=== PATIENT | female | born 1950 | race Caucasian/White ===

== ENCOUNTER 2021-03-31 13:42 | Outpatient (CLI) | payer MEDICARE, SELFPAY ==
--- NOTE | 2021-03-31 13:50 | XR_ITS ---
WS: [id number] Abdomen series: PA CHEST AND 2 VIEWS OF THE ABDOMEN HISTORY: FLANK PAIN, RIGHT COMPARISON: None available. Lungs are clear and well aerated. Heart size is normal. No free air beneath the diaphragm. Bowel gas pattern is normal. No masses or calcifications. Osseous structures are also within normal l imits. Prior cholecystectomy. Mild narrowing of the SI joints and hip joints. Thoracolumbar scoliosis. XR/XR acute abdomen series [id number] IMPRESSION: No GI tract obstruction or free air.
== END 2021-03-31 13:43 | disposition home or self-care (01) ==
PROVIDERS: PCP Family Medicine; Visit Provider Family Medicine
DX: R10.9 Unspecified abdominal pain (principal)
CPT/HCPCS: 74022

== ENCOUNTER → 2021-04-26 16:52 | Outpatient (BNVA) | payer MEDICARE, SELFPAY | PROVIDERS: PCP Family Medicine; Visit Provider Registered Nurse Neonatal Intensive Care | DX: N39.0 Urinary tract infection, site not specified (principal) | CPT/HCPCS: 81000 ==

== ENCOUNTER 2021-10-02 08:39 | Emergency (ER) | payer MEDICARE, SELFPAY ==
[2021-10-02 08:41] VITALS: BP 135/65; PULSE 80; RESP 18; TEMP 37.1; O2SAT 98; BMI 31.6
--- NOTE | 2021-10-02 08:56 | XRR_ITS ---
PROCEDURE INFORMATION: Exam: XR Right Foot Exam date and time: 10/02/2021 8:56 AM Age: 71 years old Clinical indication: Injury or trauma; Fall; Blunt trauma; Foot; Right TECHNIQUE: Imaging protocol: XR Right foot. Views: 3 or more views. COMPARISON: No relevant prior studies available. FINDINGS: Bones/joints: No acute fracture or malalignment. Moderate 1st MTP joint degenerative changes. Calcaneal enthesopathy. Soft tissues: Normal. XR/XR foot RT min 3V* [id number] IMPRESSION: No acute fracture or malalignment.
--- NOTE | 2021-10-02 08:56 | W.ED.EXTPRO ---
HPI - Extremity Problem General: Chief complaint: Extremity Injury, Lower Stated complaint: RIGHT ANKLE PAIN S/P FALL Time Seen by Provider: 10/02/21 08:46 History of Present Illness: Patient fell on bottom step at home today injuring her right foot. Patient said when she fell she hit her head up against a wall but did not have any loss of consciousness and she has no neck pain she is not on any blood thinners. Patient said she has no other complaints of any injury anywhere. Says her foot hurts and has some swelling. Hard to put weight on it. Associated symptoms: Deny chest pain, fever(s) or rash Review of Systems Const: Denies: fever(s), chills or body aches Eyes: Denies: eye discomfort ENMT: Denies: throat pain Card: Denies: chest pain Resp: Denies: dyspnea GI: Denies: abdominal pain, nausea or vomiting Musc: Reports: extremity pain (Right foot from a fall this morning.) and extremity swelling Skin/Breast: Denies: rash Neuro: Denies: headache(s) Psych: Denies: depression or suicidal ideation [facility] ED PFSH: Social History (Updated 04/26/21 @ 15:53 by Maude Harden LPN) Smoking and tobacco status: never smoked Physical Exam Const: COMMON NORMALS: no acute distress, patient oriented x3 and alert HENMT: COMMON NORMALS: normocephalic HEAD & SCALP: normocephalic Eye: COMMON NORMALS: EOMs intact bilaterally Neck/C-Spine: COMMON NORMALS: no JVD Resp: COMMON NORMALS: normal respiratory effort and No use of accessory muscles Cardio: COMMON NORMALS: no JVD GI: INSPECTION: Yes normal to inspection Extremity: RIGHT LOWER EXTREMITY: Yes foot & digits (Tenderness and swelling to the right lateral aspect midfoot.) Right foot and digits: Yes palpation (Tender.) and Yes neurovascular exam (Intact.) Neuro: COMMON NORMALS: patient oriented x3 SENSORIUM/ORIENTATION: Yes alert Psych: COMMON NORMALS: mental status grossly normal Skin: COMMON NORMALS: no rashes or lesions noted GENERAL SKIN EXAM: no rashes or lesions noted Course Vital Signs: Vital signs: Vital Signs Temperature 98.7 F 10/02/21 08:41 Pulse Rate 81 10/02/21 09:51 Respiratory Rate 17 10/02/21 09:51 Blood Pressure 146/98 10/02/21 09:51 Pulse Oximetry 100 10/02/21 09:51 MDM - Extremity (Nontraumatic) Medical Decision Making Contusion. Lab Data Radiology Impressions Foot X-Ray 10/02/21 08:56 IMPRESSION: No acute fracture or malalignment. Discharge Plan Discharge Patient Disposition: Home Clinical Impression: Foot sprain Qualifiers: Encounter type: initial encounter Laterality: right Qualified Code(s): S93.601A - Unspecified sprain of right foot, initial encounter Condition: Stable Prescriptions: No Action metformin 500 mg tablet 500 mg PO DAILY 0RF lisinopril 2.5 mg tablet 2.5 mg PO DAILY 0RF amlodipine 5 mg tablet 5 mg PO DAILY 0RF doxycycline hyclate 100 mg tablet 100 mg PO BID 7 Days Qty: 14 0RF Discharge Orders: Discharge ED (Routine); Ordered 10/02/21 Ordered By: nEoc Sifuentes Referrals: Miguel Anderson, [Primary Care Provider] - Discharge Diet: Usual diet Discharge Activity: Increase activity as tolerated Patient Instructions: Foot Sprain (ED) Activity Restrictions/Additional Instructions: Apply ice to area as needed. Ambulate as much as possible. If no significant provement noted in the healing process please follow-up your primary care provider or return here. Coding Level of Care Code ED Planting Material Unloader for Trino Nathan Exam Comprehensive
[2021-10-02 09:10] VITALS: BP 135/65; PULSE 80; RESP 18; O2SAT 98
[2021-10-02 09:51] VITALS: BP 146/98; PULSE 81; RESP 17; O2SAT 100
== END 2021-10-02 09:19 | disposition home or self-care (01) ==
PROVIDERS: Emergency Provider Nurse Practitioner Family; PCP Family Medicine
DX: S93.601A Unspecified sprain of right foot, initial encounter (principal); W19.XXXA Unspecified fall, initial encounter
CPT/HCPCS: 73630; 99283

== ENCOUNTER → 2021-11-07 13:02 | Outpatient (BNVA) | payer MEDICARE, SELFPAY | PROVIDERS: PCP Family Medicine | DX: N39.0 Urinary tract infection, site not specified (principal) | CPT/HCPCS: 81000 ==

== ENCOUNTER 2022-08-27 19:19 | Emergency (ER) | payer MEDICARE, SELFPAY ==
[2022-08-27] VITALS (7 sets, daily range): BP systolic 143–175; BP diastolic 77–93; PULSE 71–88; RESP 13–23; TEMP 36.6; O2SAT 94–97; BMI 30.6
--- NOTE | 2022-08-27 19:42 | ECG_ITS ---
[facility] Test Date: 2022-08-27 Pat Name: Shala Gutiérrez Department: Room: Gender: Female Pharmacy Technician Trainee: : 1950 Requested By: Marycarmen Rasheed Order Number: [id number] Stephanie MD: Maricruz Padron M.D. Measurements Intervals [place] Rate: 92 P: 40 [place]: 158 QRS: -17 QRSD: 90 T: 30 QT: 337 QTc: 419 Interpretive Statements SINUS RHYTHM LOW QRS VOLTAGE IN PRECORDIAL LEADS [QRS DEFLECTION < 1.0 mV IN CHEST LEADS] Compared to ECG 08/25/2016 10:00:12 Low QRS voltage now present Electronically Signed On 08-28-2022 8:49:34 REMEDIAL READING TEACHER by Maricruz Padron M.D. [email or web address].[employer]/store/[id number]
--- NOTE | 2022-08-27 20:17 | XRR_ITS ---
PROCEDURE INFORMATION: Exam: XR Chest Exam date and time: 08/27/2022 8:22 PM Age: 72 years old Clinical indication: Sternal or substernal pain; Additional info: Cp TECHNIQUE: Imaging protocol: Radiologic exam of the chest. Views: 1 view. COMPARISON: CR XR chest 2V* [id number] 07/18/2017 12:53 AM FINDINGS: Lungs: Unremarkable. No consolidation. Pleural spaces: Unremarkable. No pleural effusion. No pneumothorax. Heart/Mediastinum: Unremarkable. No cardiomegaly. Bones/joints: Moderate dextroscoliosis of the thoracic spine. Rotator cuff repair anchor noted in the left humeral head. Visualized osseous structures are intact. XR/XR chest 1V portable [id number] IMPRESSION: No acute findings.
[2022-08-27 20:24] LABS: Basophils % 0.7 %; Eosinophils # 0.3 10^3/uL (0.0-0.8); Eosinophils % 5.1 %; Hematocrit 41.6 % (37.0-47.0); Hemoglobin 13.9 g/dL (11.5-15.3); Lymphocytes # 1.8 10^3/uL (0.8-4.8); Mean Corpuscular HGB Conc 33.4 g/dL (30.0-36.0); Mean Corpuscular Hemoglobin 28.3 pg (28.0-34.0); Mean Corpuscular Volume 84.7 fl (81-99); Mean Platelet Volume 10.2 fL (7.4-10.4); Monocytes # 0.5 10^3/uL (0.2-0.9); Monocytes % 8.4 %; Neutrophils # 3.29 10^3/uL (1.8-7.7); Neutrophils % 55.5 %; Nucleated Red Blood Cells % 0 %; Platelet Count 223 10^3/cmm (130-400); Red Blood Count 4.91 10^6/uL (4.1-5.3); White Blood Count 5.9 10^3/uL (4.0-10.0)
--- NOTE | 2022-08-27 20:28 | ED_ITS ---
HPI - Arrhythmia/Palpitations General: Chief Complaint: Arrhythmia/Palpitations Stated Complaint: pain by should blades, sob, light headed Time Seen by Provider: 08/27/22 19:53 Source: patient History of Present Illness: 72-year-old female with a history of atrial fibrillation. She presents with an episode of feeling flushed, with pain between her shoulder blades and some mild shortness of breath while eating supper this evening. The sensation is now passed. She notes that for a minute, it felt like she was going to pass out. She has no prior coronary history. She does complain of similar upper back pains that wax and wane over the last 48 to 72 hours. MD complaint: rapid heart beat Onset (ago): minute(s) Duration: constant and now resolved Context: other Arrhythmia history: atrial fibrillation Associated symptoms: Reports cough (2 days ago now improved), nausea, pre-s yncope, sense of impending doom and short of breath; Deny syncope or vomiting Review of Systems Const: Denies: fever(s) Eyes: Denies: change in vision ENMT: Denies: throat pain Card: Reports: chest pain, palpitations, irregular heart rhythm and pre- syncope; Denies: syncope Resp: Reports: dyspnea, productive cough and non-productive cough GI: Reports: nausea; Denies: abdominal pain or vomiting PFS ED PFSH: Social History Smoking and tobacco status: never smoked Physical Exam Const: COMMON NORMALS: no acute distress GENERAL APPEARANCE: cooperative; not ill appearing and not frail appearing HENMT: COMMON NORMALS: normocephalic, atraumatic and Normal external nose present HEAD & SCALP: normocephalic and atraumatic FACE & SINUS: normal facial exam and face symmetric NOSE: Normal external nose present Eye: COMMON NORMALS: Equal, round and reactive pupils present and EOMs intact bilaterally PUPIL: Yes Equal, round and reactive pupils present Neck/C-Spine: GENERAL: Yes trachea midline Chest: CHEST: Yes Symmetrical chest wall rise Resp: COMMON NORMALS: normal respiratory effort, No retractions, No use of accessory muscles and clear to auscultation bilaterally AUSCULTATION: clear to auscultation bilaterally Cardio: COMMON NORMALS: regular rate and regular rhythm RATE: regular rate RHYTHM: regular rhythm GI: COMMON NORMALS: Normal to inspection, nondistended, normoactive bowel sounds present Extremity: COMMON NORMALS: no pedal edema Neuro: BERKLEY COMA SCALE: document GCS findings Ashby coma scale eye opening: Spontaneous Berkley coma scale verbal response: Orientated Ashby coma scale motor response: Obey commands Berkley coma scale total score: 15 SENSORY EXAM: Yes extremities (intact) Psych: COMMON NORMALS: speech normal SPEECH: Yes normal speech Skin: COMMON NORMALS: no rashes or lesions noted GENERAL SKIN EXAM: no rashes or lesions noted Course Vital Signs: Vital signs: Vital Signs Temperature 97.8 F 08/27/22 19:37 Pulse Rate 75 08/27/22 22:13 Respiratory Rate 20 H 08/27/22 22:13 Blood Pressure 168/92 08/27/22 22:13 Pulse Oximetry 96 08/27/22 22:13 Oxygen Delivery Me thod 08/27/22 20:44 MDM - Arrhythmia/Palpitations Medical Decision Making Patient is asymptomatic. Heart rate is improved to 75. Blood pressure is 149/84 after metoprolol. Chest x-ray is negative. CBC is normal. BMP is essentially normal save an elevated glucose. Her TSH is normal. Her D-dimer is 0.48. BNP is 75. No cause identified. It could have been a short run of atrial fibrillation. She is in sinus rhythm now. Her EKG showed a normal sinus rhythm with normal axis, normal intervals, and no ST changes. Rate is 75. She will be allowed home for outpatient follow-up. Lab Data 08/27/22 20:05 08/27/22 20:05 Radiology Impressions Chest X-Ray 08/27/22 20:17 IMPRESSION: No acute findings. Laboratory Results WBC 5.9 10^3/uL (4.0-10.0) 08/27/22 20:05 RBC 4.91 10^6/uL (4.1-5.3) 08/27/22 20:05 Hgb 13.9 g/dL (11.5-15.3) 08/27/22 20:05 Hct 41.6 % (37.0-47.0) 08/27/22 20:05 MCV 84.7 fl (81-99) 08/27/22 20:05 MCH 28.3 pg (28.0-34.0) 08/27/22 20:05 MCHC 33.4 g/dL (30.0-36.0) 08/27/22 20:05 RDW 14.0 % (12.1-15.1) 08/27/22 20:05 Plt Count 223 10^3/cmm (130-400) 08/27/22 20:05 MPV 10.2 fL (7.4-10.4) 08/27/22 20:05 Neut % (Auto) 55.5 % 08/27/22 20:05 Lymph % (Auto) 30.0 % 08/27/22 20:05 [place] % (Auto) 8.4 % 08/27/22 20:05 Eos % (Auto) 5.1 % 08/27/22 20:05 Baso % (Auto) 0.7 % 08/27/22 20:05 Neut # (Auto) 3.29 10^3/uL (1.8-7.7) 08/27/22 20:05 Lymph # (Auto) 1.8 10^3/uL (0.8-4.8) 08/27/22 20:05 [place] # (Auto) 0.5 10^3/uL (0.2-0.9) 08/27/22 20:05 Eos # (Auto) 0.3 10^3/uL (0.0-0.8) 08/27/22 20:05 Baso # (Auto) 0.0 10^3/uL (0.0-0.1) 08/27/22 20:05 Nucleated RBC % (auto) 0 % 08/27/22 20:05 Nucleated RBCs # 0.0 /100WBC 08/27/22 20:05 D-Dimer 0.48 ug/mIFEU (0-0.59) 08/27/22 20:05 Sodium 137 mmol/L (136-145) 08/27/22 20:05 Potassium 4.0 mmol/L (3.5-5.1) 08/27/22 20:05 Chloride 99 mmol/L (98-107) 08/27/22 20:05 Carbon Dioxide 24 mmol/L (22-29) 08/27/22 20:05 Anion Gap 18.0 (5-19) 08/27/22 20:05 BUN 13 mg/dL (8-23) 08/27/22 20:05 Creatinine 0.9 mg/dL (0.5-0.9) 08/27/22 20:05 GFR Calculation Not Reportable 08/27/22 20:05 Glucose 153 mg/dL (65-115) H 08/27/22 20:05 Calculated Osmolality 287 mOsm/kg (285-295) 08/27/22 20:05 Calcium 9.8 mg/dL (8.5-10.5) 08/27/22 20:05 Magnesium 1.8 mg/dL (1.7-2.3) 08/27/22 20:05 Total Bilirubin 0.5 mg/dL (0.15-1.2) 08/27/22 20:05 AST 15 U/L (0-32) 08/27/22 20:05 ALT 11 U/L (0-33) 08/27/22 20:05 Alkaline Phosphatase 101 U/L (35-105) 08/27/22 20:05 Troponin T Baseline 6 ng/L (0-10) 08/27/22 20:05 Troponin T 120 Minute 6.00 ng/L (0-10) 08/27/22 21:40 Delta Troponin T 0 ABS# (0-10) 08/27/22 21:40 NT-Pro-B Natriuret Pep 75 pg/mL (0-125) 08/27/22 20:05 Total Protein 6.7 g/dL (6.6-8.7) 08/27/22 20:05 Albumin 4.6 g/dL (3.5-5.2) 08/27/22 20:05 Globulin 2.1 g/dL (1.3-4.6) 08/27/22 20:05 TSH 1.33 uIU/mL (0.27-4.20) 08/27/22 20:05 Discharge Plan Discharge Patient Disposition: Home Clinical Impression: Palpitations Condition: Stable Prescriptions: No Action amlodipine 5 mg tablet 7.5 mg PO BID Qty: 270 3RF lisinopril 2.5 mg tablet 2.5 mg PO DAILY Qty: 90 3RF metoprolol tartrate 25 mg tablet 25 mg PO BID Qty: 180 3RF metformin 500 mg tablet 500 mg PO BID Discharge Orders: Discharge ED (Routine); Ordered 08/27/22 Ordered By: Domingo Braga Referrals: Miguel Anderson, [Primary Care Provider] - 1-3 days Patient Instructions: Heart Palpitations (ED) Activity Restrictions/Additional Instructions: Return for repeated episodes of chest discomfort, or palpitations. Return for any other concerning symptoms. Follow-up with your doctor this week continue your medication as directed Coding Level of Care Code ED Cardiovascular Surgical Tech for Chg Fwd Exam Comprehensive
[2022-08-27 20:34] LABS: D Dimer 0.48 ug/mIFEU (0-0.59)
[2022-08-27] MEDS: nitroglycerin 1 gm/inch oint Pkt 0.5 INCH TOPICAL (20:40)
[2022-08-27] MEDS: metoprolol tartrate 1 mg/1 mL SDV 5 mL 5 MG IVP (20:40)
[2022-08-27 20:43] LABS: Troponin(5th) Baseline 6 ng/L (0-10)
[2022-08-27 20:53] LABS: Alanine Aminotransferase 11 U/L (0-33); Albumin Level 4.6 g/dL (3.5-5.2); Alkaline Phosphatase 101 U/L (35-105); Aspartate Amino Transferase 15 U/L (0-32); Blood Urea Nitrogen 13 mg/dL (8-23); Calcium 9.8 mg/dL (8.5-10.5); Carbon Dioxide 24 mmol/L (22-29); Chloride 99 mmol/L (98-107); Globulin 2.1 g/dL (1.3-4.6); Glucose 153 mg/dL (65-115); Magnesium 1.8 mg/dL (1.7-2.3); NT Pro B Type Natriuretic Pept 75 pg/mL (0-125); Osmolality Calculated 287 mOsm/kg (285-295); Sodium 137 mmol/L (136-145); Thyroid Stimulating Hormone 1.33 uIU/mL (0.27-4.20); Total Bilirubin 0.5 mg/dL (0.15-1.2); Total Protein 6.7 g/dL (6.6-8.7)
--- NOTE | 2022-08-27 22:08 | ECG_ITS ---
[facility] Test Date: 2022-08-27 Pat Name: Shala Gutiérrez Department: Room: Gender: Female Drywall Finishing Foreman: : 1950 Requested By: Domingo Ayoub Order Number: [id number] Stephanie MD: Maricruz Padron M.D. Measurements Intervals [place] Rate: 72 P: 50 [place]: 176 QRS: -5 QRSD: 85 T: 23 QT: 385 QTc: 422 Interpretive Statements SINUS RHYTHM WITH SINUS ARRHYTHMIA Compared to ECG 08/25/2016 10:00:12 No significant changes Electronically Signed On 08-27-2022 22:42:39 WINDMILL MECHANIC by Maricruz Padron M.D. [email or web address] Biotechneshoba county general hospitalNYCareerElitekettering health washington township.[employer]/store/OM/[id number]
[2022-08-27 23:18] LABS: Troponin 5 2HR Delta 0 ABS# (0-10)
== END 2022-08-27 22:20 | disposition home or self-care (01) ==
PROVIDERS: Emergency Provider Emergency Medicine; PCP Family Medicine
DX: R00.2 Palpitations (principal); Z79.84 Long term (current) use of oral hypoglycemic drugs
CPT/HCPCS: 71045; 80053; 83735; 83880; 84443; 84484; 85025; 85378; 93005; 96374; 99285; J3490

== ENCOUNTER 2023-01-16 08:34 | Emergency (ER) | payer MEDICARE, SELFPAY ==
[2023-01-16 08:39] VITALS: BP 185/85; PULSE 76; RESP 18; TEMP 36.8; O2SAT 98; BMI 30.2
--- NOTE | 2023-01-16 08:59 | XR_ITS ---
WS: [id number] Exam: XR chest 1V portable [id number] Date/Time of Exam: 01/16/2023 8:59 AM Reason For Exam: chest pain Comparison 08/27/2022. The lungs are clear and fully inflated. Normal cardiomediastinal silhouette. Dextroscoliosis of the T -spine. No pleural effusion. XR/XR chest 1V portable [id number] IMPRESSION: 1. No acute cardiopulmonary finding. No change.
--- NOTE | 2023-01-16 08:59 | ECG_ITS ---
[facility] Test Date: 2023-01-16 Pat Name: Shala Gutiérrez Department: Room: Gender: Female Conflicts Analyst: : 1950 Requested By: Bill Tovar Order Number: [id number] Stephanie MD: Jose Ortiz M.D. Measurements Intervals [place] Rate: 71 P: 47 CO: 182 QRS: -1 QRSD: 86 T: 24 QT: 372 QTc: 406 Interpretive Statements SINUS RHYTHM POSSIBLE RIGHT VENTRICULAR CONDUCTION DELAY [RSR (QR) IN V1/V2] SEPTAL MYOCARDIAL INFARCTION , OF INDETERMINATE AGE [40+ ms Q WAVE IN V1/V2] Compared to ECG 08/27/2022 22:08:03 Myocardial infarct finding now present Sinus arrhythmia no longer present Electronically Signed On 01-16-2023 9:37:40 CDT by Jose Ortiz M.D. [email or web address].Cantab Biopharmaceuticalspearl river county hospitalRollerscootflower hospital.Rx Networks/store/OM/[id number]
--- NOTE | 2023-01-16 08:59 | W.ED.CHESTPA ---
HPI - Chest Pain General: Chief Complaint: Chest Pain Stated Complaint: right jaw pain into arm and back Time Seen by Provider: 01/16/23 08:41 Source: patient Mode of arrival: ambulatory History of Present Illness: 72-year-old female presents emergency room with right jaw pain goes down her neck into her right upper chest and then has migrated across her chest to the left side. Began this morning when she woke up. Is been waxing and waning she is related it to gas or possibly at tooth irritation. She has no known history of coronary artery disease she has had intermittent A-fib in the past but is not on any anticoagulation she tells me they made some medication adjustments and she has not had any issues since then. She does have a history hypertension she does not smoke. In 2016 or 17 and she states she had an angiogram that was normal. At that time she was initially seen for chest pain it has resolved for the most part. MD complaint: chest pain Onset (ago): hour(s) Timing of current episode: episodic Onset: during rest Pain location: right chest Pain radiation: neck and right shoulder Severity: moderate Quality: aching and heaviness Relieving factors: nothing Exacerbating factors: nothing Associated symptoms: Deny abdominal pain, diaphoresis, dyspnea, fever(s), leg edema, nausea, palpitations, sense of impending doom, syncope or vomiting Review of Systems Const: Denies: fever(s), chills, fatigue, malaise or diaphoresis Card: Reports: chest pain; Denies: palpitations, irregular heart rhythm, edema, swelling of feet/ankles or syncope Resp: Denies: dyspnea GI: Denies: abdominal pain, nausea or vomiting : Denies: dysuria, urinary frequency or urinary urgency Musc: Reports: neck pain Skin/Breast: Denies: rash or pruritus PFSH ED PFSH: Medical History Essential hypertension Hx of breast lump benign Hx of concussion Surgical History History of loop recorder Yesica Louis Hx of cataract removal with insertion of prosthetic lens Hx of cholecystectomy Hx of dilation and curettage Hx of hysterectomy Family History Father Cancer prostate cancer Other CAD (coronary artery disease) Social History Smoking and tobacco status: never smoked Alcohol intake: never Physical Exam HENMT: COMMON NORMALS: normocephalic, atraumatic and hearing grossly normal bilaterally HEAD & SCALP: normocephalic and atraumatic Resp: COMMON NORMALS: normal respiratory effort, No retractions, No use of accessory muscles and clear to auscultation bilaterally AUSCULTATION: clear to auscultation bilaterally Cardio: COMMON NORMALS: regular rate, regular rhythm and No murmurs present (Cardio) RATE: regular rate RHYTHM: regular rhythm GI: COMMON NORMALS: Soft to palpation and No hepatosplenomegaly present AUSCULTATION: Yes normoactive bowel sounds PALPATION: Yes Soft to palpation, No Tenderness to palpation present (GI), No Guarding due to palpation present (GI) and Yes No hepatosplenomegaly present Extremity: COMMON NORMALS: normal to inspection, capillary refill normal, no clubbing, cyanosis or edema, no calf tenderness and no pedal edema Skin: COMMON NORMALS: no rashes or lesions noted GENERAL SKIN EXAM: no rashes or lesions noted Course Vital Signs: Vital signs: Vital Signs Temperature 98.2 F 01/16/23 08:39 Pulse Rate 74 01/16/23 10:11 Respiratory Rate 18 01/16/23 08:39 Blood Pressure 142/68 01/16/23 10:11 Pulse Oximetry 98 01/16/23 10:11 Oxygen Delivery Me thod Room Air 01/16/23 08:39 MDM - Chest Pain Medical Decision Making EKG Labs and x-ray reviewed no acute changes on EKG troponins trending normal discharge patient home. Continue aspirin daily continue other medications we will set up for Lexiscan sestamibi stress test as an outpatient Medical Records I reviewed the patient's medical records. Lab Data I reviewed the patient's lab results. 01/16/23 09:06 01/16/23 09:06 Radiology Impressions Chest X-Ray 01/16/23 08:59 IMPRESSION: 1. No acute cardiopulmonary finding. No change. Laboratory Results WBC 8.4 10^3/uL (4.0-10.0) 01/16/23 09:06 RBC 4.93 10^6/uL (4.1-5.3) 01/16/23 09:06 Hgb 13.4 g/dL (11.5-15.3) 01/16/23 09:06 Hct 42.2 % (37.0-47.0) 01/16/23 09:06 MCV 85.6 fl (81-99) 01/16/23 09:06 MCH 27.2 pg (28.0-34.0) L 01/16/23 09:06 MCHC 31.8 g/dL (30.0-36.0) 01/16/23 09:06 RDW 14.5 % (12.1-15.1) 01/16/23 09:06 Plt Count 188 10^3/cmm (130-400) 01/16/23 09:06 MPV 10.6 fL (7.4-10.4) H 01/16/23 09:06 Neut % (Auto) 70.7 % 01/16/23 09:06 Lymph % (Auto) 19.1 % 01/16/23 09:06 [place] % (Auto) 6.8 % 01/16/23 09:06 Eos % (Auto) 2.3 % 01/16/23 09:06 Baso % (Auto) 0.4 % 01/16/23 09:06 Neut # (Auto) 5.91 10^3/uL (1.8-7.7) 01/16/23 09:06 Lymph # (Auto) 1.6 10^3/uL (0.8-4.8) 01/16/23 09:06 [place] # (Auto) 0.6 10^3/uL (0.2-0.9) 01/16/23 09:06 Eos # (Auto) 0.2 10^3/uL (0.0-0.8) 01/16/23 09:06 Baso # (Auto) 0.0 10^3/uL (0.0-0.1) 01/16/23 09:06 Nucleated RBC % (auto) 0 % 01/16/23 09:06 Nucleated RBCs # 0.0 /100WBC 01/16/23 09:06 Sodium 141 mmol/L (136-145) 01/16/23 09:06 Potassium 4.6 mmol/L (3.5-5.1) 01/16/23 09:06 Chloride 104 mmol/L (98-107) 01/16/23 09:06 Carbon Dioxide 24 mmol/L (22-29) 01/16/23 09:06 Anion Gap 17.6 (5-19) 01/16/23 09:06 BUN 9 mg/dL (8-23) 01/16/23 09:06 Creatinine 0.8 mg/dL (0.5-0.9) 01/16/23 09:06 GFR Calculation Not Reportable 01/16/23 09:06 Glucose 113 mg/dL (65-115) 01/16/23 09:06 Calculated Osmolality 291 mOsm/kg (285-295) 01/16/23 09:06 Calcium 9.4 mg/dL (8.5-10.5) 01/16/23 09:06 Total Bilirubin 0.5 mg/dL (0.15-1.2) 01/16/23 09:06 AST 15 U/L (0-32) 01/16/23 09:06 ALT 10 U/L (0-33) 01/16/23 09:06 Alkaline Phosphatase 92 U/L (35-105) 01/16/23 09:06 Troponin T Baseline 6 ng/L (0-10) 01/16/23 09:06 Troponin T 120 Minute 6.00 ng/L (0-10) 01/16/23 11:23 Delta Troponin T 0 ABS# (0-10) 01/16/23 11:23 Total Protein 6.8 g/dL (6.6-8.7) 01/16/23 09:06 Albumin 4.6 g/dL (3.5-5.2) 01/16/23 09:06 Globulin 2.2 g/dL (1.3-4.6) 01/16/23 09:06 Discharge Plan Discharge Patient Disposition: Home Clinical Impression: Atypical chest pain Condition: Stable Prescriptions: New aspirin 81 mg tablet,delayed release (DR/EC) 81 mg PO DAILY Qty: 30 0RF pantoprazole 40 mg tablet,delayed release (DR/EC) 40 mg PO DAILY 56 Days Qty: 60 0RF No Action amlodipine 2.5 mg tablet 2.5 mg PO DAILY Qty: 90 1RF metoprolol tartrate 25 mg tablet 25 mg PO BID Qty: 180 3RF metformin 500 mg tablet 500 mg PO BID Qty: 180 0RF lisinopril 10 mg tablet 10 mg PO BID Qty: 180 3RF Discharge Orders: Discharge ED (Routine); Ordered 01/16/23 Ordered By: Bill Gonzalez Referrals: Miguel Anderson DO [Primary Care Provider] - Discharge Diet: Usual diet Discharge Activity: Increase activity as tolerated Patient Instructions: Opioid Safety, Pain Management Coding Level of Care Code ED Clinical Cytopathologist for Trino Nathan
--- NOTE | 2023-01-16 09:16 | PC.PHAR ---
pt states she takes care of her own medications-rx last filled for amlodipine 7.5mg [facility] 12[facility]12[facility]22 [facility] written 10/11/22 90d/s amlodipine 2.5mg daily pt states she is taking 2.5mg daily-notes are made in the pharmacy comments
[2023-01-16 09:28] LABS: Basophils % 0.4 %; Eosinophils # 0.2 10^3/uL (0.0-0.8); Eosinophils % 2.3 %; Hematocrit 42.2 % (37.0-47.0); Hemoglobin 13.4 g/dL (11.5-15.3); Lymphocytes # 1.6 10^3/uL (0.8-4.8); Lymphocytes % 19.1 %; Mean Corpuscular HGB Conc 31.8 g/dL (30.0-36.0); Mean Corpuscular Hemoglobin 27.2 pg (28.0-34.0); Mean Corpuscular Volume 85.6 fl (81-99); Mean Platelet Volume 10.6 fL (7.4-10.4); Monocytes # 0.6 10^3/uL (0.2-0.9); Monocytes % 6.8 %; Neutrophils # 5.91 10^3/uL (1.8-7.7); Neutrophils % 70.7 %; Nucleated Red Blood Cells % 0 %; Platelet Count 188 10^3/cmm (130-400); Red Blood Count 4.93 10^6/uL (4.1-5.3); Red Cell Distribution Width 14.5 % (12.1-15.1); White Blood Count 8.4 10^3/uL (4.0-10.0)
[2023-01-16 09:54] LABS: Alanine Aminotransferase 10 U/L (0-33); Albumin Level 4.6 g/dL (3.5-5.2); Alkaline Phosphatase 92 U/L (35-105); Aspartate Amino Transferase 15 U/L (0-32); Blood Urea Nitrogen 9 mg/dL (8-23); Calcium 9.4 mg/dL (8.5-10.5); Carbon Dioxide 24 mmol/L (22-29); Chloride 104 mmol/L (98-107); Globulin 2.2 g/dL (1.3-4.6); Glucose 113 mg/dL (65-115); Osmolality Calculated 291 mOsm/kg (285-295); Sodium 141 mmol/L (136-145); Total Bilirubin 0.5 mg/dL (0.15-1.2); Total Protein 6.8 g/dL (6.6-8.7); Troponin(5th) Baseline 6 ng/L (0-10)
[2023-01-16 10:11] VITALS: BP 142/68; PULSE 74; O2SAT 98
[2023-01-16 10:58] LABS: Anion Gap 17.6 (5-19); Potassium 4.6 mmol/L (3.5-5.1)
--- NOTE | 2023-01-16 10:59 | ECG_ITS ---
[facility] Test Date: 2023-01-16 Pat Name: Shala Gutiérrez Department: Room: Gender: Female Family Intervention Specialist: : 1950 Requested By: Bill Tovar Order Number: [id number] Stephanie MD: Jose Ortiz M.D. Measurements Intervals [place] Rate: 70 P: 46 RI: 180 QRS: 2 QRSD: 85 T: 30 QT: 365 QTc: 396 Interpretive Statements SINUS RHYTHM POSSIBLE RIGHT VENTRICULAR CONDUCTION DELAY [RSR (QR) IN V1/V2] Compared to ECG 01/16/2023 09:02:35 Myocardial infarct finding no longer present Electronically Signed On 01-16-2023 17:26:52 CDT by Jose Ortiz M.D. [email or web address] specialty hospital of greenvilleStuffBuffmercy health [facility].[employer]/store/OM/[id number]/ecg/[id number]
[2023-01-16 11:54] LABS: Troponin 5 2HR Delta 0 ABS# (0-10)
[2023-01-16 12:46] VITALS: BP 140/71; PULSE 80; O2SAT 98
== END 2023-01-16 12:49 | disposition home or self-care (01) ==
PROVIDERS: Emergency Provider Family Medicine; PCP Family Medicine
DX: R07.89 Other chest pain (principal); Z79.84 Long term (current) use of oral hypoglycemic drugs; I10 Essential (primary) hypertension
CPT/HCPCS: 36415; 71045; 80053; 84484; 85025; 93005; 99285

== ENCOUNTER → 2023-04-02 11:47 | Outpatient (BNVA) | payer MEDICARE, SELFPAY | PROVIDERS: PCP Family Medicine; Visit Provider Emergency Medicine | DX: M79.641 Pain in right hand (principal); M19.041 Primary osteoarthritis, right hand | CPT/HCPCS: 73130 ==

== ENCOUNTER → 2023-04-28 09:43 | Outpatient (BNVA) | payer MEDICARE, SELFPAY | PROVIDERS: PCP Family Medicine; Visit Provider Family Medicine | DX: M79.643 Pain in unspecified hand (principal); R22.9 Localized swelling, mass and lump, unspecified; M19.90 Unspecified osteoarthritis, unspecified site; E03.9 Hypothyroidism, unspecified; I10 Essential (primary) hypertension | CPT/HCPCS: 80053; 85025; 86140; 86160; 86162; 86235; 86255; 86376 ==

== ENCOUNTER → 2023-06-26 10:06 | Outpatient (BNVA) | payer MEDICARE, SELFPAY | PROVIDERS: PCP Family Medicine; Visit Provider Family Medicine | DX: M19.90 Unspecified osteoarthritis, unspecified site (principal); M79.643 Pain in unspecified hand | CPT/HCPCS: 84550 ==

== ENCOUNTER → 2024-08-20 10:00 | Outpatient (BNVA) | payer MEDICARE, SELFPAY | PROVIDERS: PCP Family Medicine; Referring Provider Family Medicine; Visit Provider Psychiatry & Neurology Neurology | DX: R26.89 Other abnormalities of gait and mobility (principal); G56.03 Carpal tunnel syndrome, bilateral upper limbs; E55.9 Vitamin D deficiency, unspecified; M79.641 Pain in right hand; M79.642 Pain in left hand | CPT/HCPCS: 36415; 82306; 82607; 82746; 83735; 83921; 99203 ==

== ENCOUNTER 2024-09-02 10:07 | Outpatient (CLI) | payer MEDICARE, SELFPAY ==
--- NOTE | 2024-09-02 10:30 | USCV_ITS ---
Brock Shala Age: 74 Gender: F : 1950 Exam Date: 09/02/2024 10:24 Ordering Phys: Osito Zaragoza MD Technologist: R [place] [facility] [place]: balance issue Risk Factors: Previous Vascular Surgery: Right Brachial BP: / Left Brachial BP: / Right Left Velocity (cm/s) Spectral Plaque Velocity (cm/s) Spectral Plaque Syst/Diast Broadening Syst/Diast Broadening 71.50/ 12.20 Prox CCA 91.20 / 17.80 79.30/ 20.30 Mid CCA 81.90 / 14.10 66.20/ 19.20 Distal CCA 60.00 / 17.40 69.50/ 20.30 Prox ICA 46.80 / 13.20 82.50/ 31.20 Mid ICA 43.00 / 16.90 54.80/ 19.50 Distal ICA 67.10 / 21.50 81.50 ECA 58.80 1.00 ICA/CCA 0.80 Antegrade Vertebral Antegrade 38.80/ 11.10 cm/s 41.20/ 11.80 cm/s Bi Subclavian Tri 72.60 111.1 0 CONCLUSIONS Right ICA stenosis <50%. Moderate atheromatous plaque right carotid bulb/ICA. Left ICA stenosis <50%. Moderate atheromatous plaque left carotid bulb/ICA. Intimal thickening in the common carotid arteries and internal carotid arteries bilaterally. Normal antegrade Doppler flow noted in the right vertebral artery. Normal antegrade Doppler flow noted in the left vertebral artery. Scott Oquendo MD (Electronically Signed) Final Date: 02 September 2024 13:02 S
== END 2024-09-02 10:08 | disposition home or self-care (01) ==
LOC: RAD 10:10
PROVIDERS: PCP Family Medicine; Visit Provider Psychiatry & Neurology Neurology
DX: R26.89 Other abnormalities of gait and mobility (principal); I65.23 Occlusion and stenosis of bilateral carotid arteries; R93.89 Abnormal findings on diagnostic imaging of other specified body structures
CPT/HCPCS: 93880

== ENCOUNTER 2024-09-03 10:48 | Outpatient (CLI) | payer MEDICARE, SELFPAY ==
--- NOTE | 2024-09-03 11:00 | MR_ITS ---
WS: [id number] MRI BRAIN WITH AND WITHOUT CONTRAST HISTORY: R26.89 - Other abnormalities of gait and mobility COMPARISON: CT head 08/25/2016 TECHNIQUE: Multiplanar imaging performed through the brain with MultiHance 19 ml's IV. No acute infarcts are seen. Bishop-white matter differentiation is well preserved. Mild cerebral and cerebellar atrophy. Mild bilateral hippocampal atrophy. Minimal small vessel changes throughout the white matter. Prominent bilateral cerebellar sulci. Similar to the prior CT. No infarct identified. Mild hippocampal atrophy. No susceptibility artifacts or prior lacunar infarcts. Ventricles and extra-axial spaces are normal. Pituitary gland is bulbous and enlarged and extends above the sella turcica. Height of the pituitary gland is 8.9 mm. The configuration is more prominent than the CT from 2017. There is heterogeneous enhancement. Posterior fossa and brainstem are negative. Heterogeneous enhancement within the enlarged pituitary gland. Pituitary gland extends superiorly from the sella turcica. Dural venous sinuses are normal. Paranasal sinuses: Well aerated with no significant disease. Mastoid air cells: Normal. Calvarium and scalp: Normal. MR/MR head wo/w con [id number] IMPRESSION: 1. No acute infarct or prior infarct. 2. Enlarged, lobulated, heterogeneous pituitary gland extends above the sella turcica. Recommend follow-up dedicated MRI pituitary gland with and without con trast. Microadenoma versus macroadenoma within the differential. 3. No enhancing masses within the brain. 4. Mild hippocampal atrophy.
[2024-09-03] MEDS: gadobenate dimeglumine 20 mL vial 19 ML IV (11:38)
== END 2024-09-03 10:49 | disposition home or self-care (01) ==
PROVIDERS: PCP Family Medicine; Visit Provider Psychiatry & Neurology Neurology
DX: R26.89 Other abnormalities of gait and mobility (principal); R93.0 Abnormal findings on diagnostic imaging of skull and head, not elsewhere classified; G31.89 Other specified degenerative diseases of nervous system; E23.6 Other disorders of pituitary gland
CPT/HCPCS: 70553

== ENCOUNTER 2024-09-06 20:06 | Emergency (ER) | payer MEDICARE, SELFPAY ==
[2024-09-06 20:07] VITALS: BP 167/81; PULSE 87; RESP 16; TEMP 37.1; O2SAT 98; BMI 30.9
--- NOTE | 2024-09-06 20:14 | ECG_ITS ---
[facility] Test Date: 2024-09-06 Pat Name: Shala uGtiérrez Department: Room: Gender: Female Fit Model: : 1950 Requested By: Huma Kramer Order Number: [id number] Reading MD: JOSESITO CAMPUZANO Measurements Intervals [place] Rate: 91 P: 50 NV: 148 QRS: -18 QRSD: 83 T: 48 QT: 319 QTc: 393 Interpretive Statements SINUS RHYTHM Compared to ECG 01/16/2023 11:03:52 No significant changes Electronically Signed On 09-07-2024 19:16:27 COLLET DRILLER by JOSESITO CAMPUZANO [id number]
--- NOTE | 2024-09-06 20:14 | XRR_ITS ---
PROCEDURE INFORMATION: Exam: XR Chest Exam date and time: 09/06/2024 8:53 PM Age: 74 years old Clinical indication: Chest pressure; C/O chest pain TECHNIQUE: Imaging protocol: Radiologic exam of the chest. Views: 1 view. COMPARISON: CR XR chest 1V portable [id number] 01/16/2023 9:16 AM FINDINGS: Tubes, catheters and devices: Overlying monitor leads. Lungs: No infiltrate or consolidation. Pulmonary vascularity within normal limits. Pleural spaces: No pleural effusion. No pneumothorax. Heart/Mediastinum: No significant cardiomegaly. Vasculature: Mild arteriosclerosis thoracic aorta. Bones/joints: Thoracic dextroscoliosis. Postsurgical change left shoulder. Other findings: No significant change with prior exam. XR/XR chest 1V portable [id number] IMPRESSION: No acute cardiopulmonary abnormality.
--- NOTE | 2024-09-06 20:49 | W.ED.CHESTPA ---
HPI - Chest Pain General: Chief Complaint: Chest Pain Stated Complaint: CP high blood pressure Time Seen by Provider: 09/06/24 20:42 Source: patient Mode of arrival: ambulatory Limitations: no limitations History of Present Illness: 74-year-old female states she has been having epigastric lower chest pains been along for the last few days has worsened today. States that today she felt like she needed to belch started belching and her pain has improved. States pain is upper abdomen lower chest she denies any dyspnea denies any diaphoresis. She had no vomiting or diarrhea. Associated symptoms: Reports abdominal pain; Deny dyspnea, fever(s), nausea or vomiting Related Data Previous Rx's ?Medication ?Instructions ?Recorded ibuprofen 600 mg tablet 600 mg PO Q8H PRN pain #30 tabs 04/02/23 diclofenac sodium 1 % topical gel 4 g topical QID #100 grams 06/26/23 (Voltaren Arthritis Pain) metformin 500 mg tablet 500 mg PO BID #180 tabs 08/24/23 amlodipine 2.5 mg tablet 2.5 mg PO DAILY bp #90 tabs 01/15/24 lisinopril 10 mg tablet 10 mg PO BID #180 tabs 05/02/24 metoprolol tartrate 25 mg tablet 25 mg PO BID #180 tabs 05/02/24 fluticasone propionate 50 1 spray intranasal BID 14 days #16 05/15/24 mcg/actuation nasal grams spray,suspension (Flonase Allergy Relief) cholecalciferol (vitamin D3) 1,250 50,000 unit PO .weekly #14 caps 08/20/24 mcg (50,000 unit) capsule pantoprazole 40 mg tablet,delayed 40 mg PO DAILY #60 tabs 09/06/24 release (Protonix) Allergies Allergy/AdvReac Type Severity Reaction Status Date / Time doxycycline Allergy Severe vomiting Verified 08/20/24 08:40 ibuprofen Allergy nausea Verified 08/20/24 08:40 Penicillins Allergy nausea Verified 08/20/24 08:40 Review of Systems Const: Denies: fever(s), chills, body aches or change in appetite Eyes: Denies: blurry vision or eye discomfort ENMT: Denies: throat pain or dental pain Card: Reports: chest pain Resp: Denies: dyspnea GI: Reports: abdominal pain; Denies: nausea, vomiting or diarrhea : Denies: dysuria Musc: Denies: neck pain or back pain Skin/Breast: Denies: rash Neuro: Denies: headache(s) PFSH ED PFSH: Medical History Eruptive skin inflammation Hx of concussion Hx of breast lump benign Essential hypertension Surgical History Hx of dilation and curettage History of loop recorder Yesica Louis Hx of cataract removal with insertion of prosthetic lens Hx of cholecystectomy Hx of hysterectomy Family History Father Cancer prostate cancer Other CAD (coronary artery disease) Social History Smoking and tobacco/nicotine status: never used tobacco/nicotine Alcohol intake: never Physical Exam Const: COMMON NORMALS: no acute distress, patient oriented x3 and healthy appearing HENMT: COMMON NORMALS: normocephalic and atraumatic HEAD & SCALP: normocephalic and atraumatic Eye: COMMON NORMALS: Equal, round and reactive pupils present and EOMs intact bilaterally PUPIL: Yes Equal, round and reactive pupils present Neck/C-Spine: COMMON NORMALS: full ROM and supple Chest: COMMONS NORMALS: normal inspection of the chest and normal palpation of entire chest wall Resp: COMMON NORMALS: normal respiratory effort, No retractions, No use of accessory muscles and clear to auscultation bilaterally AUSCULTATION: clear to auscultation bilaterally Cardio: COMMON NORMALS: regular rate, regular rhythm and No murmurs present (Cardio) RATE: regular rate RHYTHM: regular rhythm GI: COMMON NORMALS: Normal to inspection, nondistended, normoactive bowel sounds present, Soft to palpation, non-tender and no masses PALPATION: Yes Soft to palpation Extremity: COMMON NORMALS: normal to inspection and full ROM Neuro: COMMON NORMALS: patient oriented x3, moves all extremities and no focal motor deficits Psych: COMMON NORMALS: mental status grossly normal, Normal thought process present and cooperative THOUGHT PROCESS: Normal thought process present Skin: COMMON NORMALS: no rashes or lesions noted and no wounds GENERAL SKIN EXAM: no rashes or lesions noted Course Vital Signs: Vital signs: Vital Signs Temperature 98.7 F 09/06/24 20:07 Pulse Rate 88 09/06/24 21:21 Respiratory Rate 18 09/06/24 21:21 Blood Pressure 160/77 09/06/24 21:21 Pulse Oximetry 97 09/06/24 21:21 Oxygen Delivery Me thod Room Air 09/06/24 20:07 MDM - Chest Pain Medical Decision Making Patient presents for chest pains atypical in nature she states she had felt chair again is likely gastric her troponin here is negative no signs of ACS we will start her on Protonix she is to follow-up with her PCP return if worsening she understands agrees to plan Medical Records I reviewed the patient's medical records. Lab Data I reviewed the patient's lab results. 09/06/24 20:52 09/06/24 20:52 Radiology Impressions Chest X-Ray 09/06/24 20:14 IMPRESSION: No acute cardiopulmonary abnormality. Laboratory Results WBC 6.44 10^3/uL (3.29-11.43) 09/06/24 20:52 RBC 4.91 10^6/uL (3.85-5.65) 09/06/24 20:52 Hgb 13.60 g/dL (11.27-16.99) 09/06/24 20:52 Hct 41.5 % (36-47) 09/06/24 20:52 MCV 84.5 fl (85-98) L 09/06/24 20:52 MCH 27.7 pg (27-33) 09/06/24 20:52 MCHC 32.8 g/dL (30-55) 09/06/24 20:52 RDW 13.9 % (12.1-15.1) 09/06/24 20:52 Plt Count 186 10^3/cmm (157-399) 09/06/24 20:52 MPV 10.0 fL (7.4-10.4) 09/06/24 20:52 Neut % (Auto) 75.4 % 09/06/24 20:52 Lymph % (Auto) 12.9 % 09/06/24 20:52 Stephens % (Auto) 8.4 % 09/06/24 20:52 Eos % (Auto) 2.5 % 09/06/24 20:52 Baso % (Auto) 0.5 % 09/06/24 20:52 Neut # (Auto) 4.86 10^3/uL (1.8-7.7) 09/06/24 20:52 Lymph # (Auto) 0.8 10^3/uL (0.8-4.8) 09/06/24 20:52 Stephens # (Auto) 0.5 10^3/uL (0.2-0.9) 09/06/24 20:52 Eos # (Auto) 0.2 10^3/uL (0.0-0.8) 09/06/24 20:52 Baso # (Auto) 0.0 10^3/uL (0.0-0.1) 09/06/24 20:52 Nucleated RBC % (auto) 0 % 09/06/24: Nucleated RBCs # 0.0 /100WBC 09/06/24 20:52 Sodium 135 mmol/L (136-145) L 09/06/24 20:52 Potassium 4.2 mmol/L (3.5-5.1) 09/06/24 20:52 Chloride 97 mmol/L (98-107) L 09/06/24 20:52 Carbon Dioxide 23 mmol/L (22-29) 09/06/24 20:52 Anion Gap 19.2 (5-19) H 09/06/24 20:52 BUN 8 mg/dL (8-23) 09/06/24 20:52 Creatinine 0.9 mg/dL (0.5-0.9) 09/06/24 20:52 GFR Calculation Not Reportable 09/06/24 20:52 Glucose 114 mg/dL (65-115) 09/06/24 20:52 Calculated Osmolality 279 mOsm/kg (285-295) L 09/06/24 20:52 Calcium 9.9 mg/dL (8.5-10.5) 09/06/24 20:52 Total Bilirubin 0.4 mg/dL (0.15-1.2) 09/06/24 20:52 AST 15 U/L (0-32) 09/06/24 20:52 ALT 10 U/L (0-33) 09/06/24 20:52 Alkaline Phosphatase 118 U/L (35-105) H 09/06/24 20:52 Troponin T Baseline 7 ng/L (0-10) 09/06/24 20:52 Total Protein 7.3 g/dL (6.6-8.7) 09/06/24 20:52 Albumin 4.7 g/dL (3.5-5.2) 09/06/24 20:52 Globulin 2.6 g/dL (1.3-4.6) 09/06/24 20:52 Lipase 32 U/L (13-60) 09/06/24 20:52 All radiology interpretation(s) finalized by discharge EKG Data EKG 1: I personally reviewed and interpreted this EKG as follows: EKG interpretation date: 09/06/24 EKG interpretation time: 20:10 Interpretation: nsr hr [address] elevation qrs 83 qtc 367 Discharge Plan Discharge Patient Disposition: Home Clinical Impression: Chest pain Condition: Stable Prescriptions: New pantoprazole [Protonix] 40 mg tablet,delayed release (DR/EC) 40 mg PO DAILY Qty: 60 0RF No Action ibuprofen 600 mg tablet 600 mg PO Q8H PRN (Reason: pain) Qty: 30 0RF diclofenac sodium [Voltaren Arthritis Pain] 1 % gel 4 g topical QID Qty: 100 0RF Rx Instructions: apply to right wrist and hand. fluticasone propionate [Flonase Allergy Relief] 50 mcg/actuation spray,suspension 1 spray intranasal BID 14 Days Qty: 16 0RF Rx Instructions: administer into each nostril metformin 500 mg tablet 500 mg PO BID Qty: 180 3RF amlodipine 2.5 mg tablet 2.5 mg PO DAILY Qty: 90 3RF lisinopril 10 mg tablet 10 mg PO BID Qty: 180 3RF metoprolol tartrate 25 mg tablet 25 mg PO BID Qty: 180 3RF cholecalciferol (vitamin D3) 1,250 mcg (50,000 unit) capsule 50,000 unit PO .weekly Qty: 14 4RF Discharge Orders: Discharge ED (Routine); Ordered 09/06/24 Ordered By: Chanel Burgess Referrals: Miguel Anderson DO [Primary Care Provider] - 4-7 days Discharge Diet: Advance as tolerated Discharge Activity: Resume usual activity Patient Instructions: Chest Pain (ED) Print Language: Belizean Coding Level of Care Code ED Typewriter Operator Automatic for Stefany Venita
[2024-09-06 20:55] VITALS: BP 171/78; PULSE 91; RESP 16; O2SAT 97
[2024-09-06 20:58] LABS: Basophils % 0.5 %; Eosinophils # 0.2 10^3/uL (0.0-0.8); Eosinophils % 2.5 %; Hematocrit 41.5 % (36-47); Lymphocytes # 0.8 10^3/uL (0.8-4.8); Lymphocytes % 12.9 %; Mean Corpuscular HGB Conc 32.8 g/dL (30-55); Mean Corpuscular Hemoglobin 27.7 pg (27-33); Mean Corpuscular Volume 84.5 fl (85-98); Monocytes # 0.5 10^3/uL (0.2-0.9); Monocytes % 8.4 %; Neutrophils # 4.86 10^3/uL (1.8-7.7); Neutrophils % 75.4 %; Nucleated Red Blood Cells % 0 %; Platelet Count 186 10^3/cmm (157-399); Red Blood Count 4.91 10^6/uL (3.85-5.65); Red Cell Distribution Width 13.9 % (12.1-15.1); White Blood Count 6.44 10^3/uL (3.29-11.43)
[2024-09-06 21:02] VITALS: BP 160/77; PULSE 92; RESP 16; O2SAT 97
[2024-09-06 21:21] VITALS: BP 160/77; PULSE 88; RESP 18; O2SAT 97
[2024-09-06 21:22] LABS: Alanine Aminotransferase 10 U/L (0-33); Albumin Level 4.7 g/dL (3.5-5.2); Alkaline Phosphatase 118 U/L (35-105); Anion Gap 19.2 (5-19); Aspartate Amino Transferase 15 U/L (0-32); Blood Urea Nitrogen 8 mg/dL (8-23); Calcium 9.9 mg/dL (8.5-10.5); Carbon Dioxide 23 mmol/L (22-29); Chloride 97 mmol/L (98-107); Creatinine Clr Calc Pharmacy 55.8288; Globulin 2.6 g/dL (1.3-4.6); Glucose 114 mg/dL (65-115); Lipase 32 U/L (13-60); Osmolality Calculated 279 mOsm/kg (285-295); Potassium 4.2 mmol/L (3.5-5.1); Sodium 135 mmol/L (136-145); Total Bilirubin 0.4 mg/dL (0.15-1.2); Total Protein 7.3 g/dL (6.6-8.7)
[2024-09-06 21:30] LABS: Troponin(5th) Baseline 7 ng/L (0-10)
[2024-09-06 22:22] VITALS: BP 139/71; PULSE 88; RESP 16; O2SAT 97
== END 2024-09-06 22:08 | disposition home or self-care (01) ==
PROVIDERS: Physician Assistant; Emergency Provider Emergency Medicine; PCP Family Medicine
DX: R07.9 Chest pain, unspecified (principal); Z79.84 Long term (current) use of oral hypoglycemic drugs; I10 Essential (primary) hypertension
CPT/HCPCS: 36415; 71045; 80053; 83690; 84484; 85025; 93005; 99285

== ENCOUNTER 2024-10-14 13:00 | Oncology outpatient (recurring) (ONCR) | payer MEDICARE, SELFPAY ==
[2024-09-23] MEDS: cyanocobalamin 1,000 mcg/mL SDV 1000 MCG IM (10:50)
[2024-09-30] MEDS: cyanocobalamin 1,000 mcg/mL SDV 1000 MCG IM (13:41)
[2024-10-07] MEDS: cyanocobalamin 1,000 mcg/mL SDV 1000 MCG IM (08:10)
[2024-10-14] MEDS: cyanocobalamin 1,000 mcg/mL SDV 1000 MCG IM (13:29)
== END 2024-10-21 23:59 | disposition home or self-care (01) ==
PROVIDERS: PCP Family Medicine; Visit Provider Internal Medicine Medical Oncology
DX: Z53.9 Procedure and treatment not carried out, unspecified reason (principal); E53.8 Deficiency of other specified B group vitamins; Z79.899 Other long term (current) drug therapy
CPT/HCPCS: 96372; 99204; J3420

== ENCOUNTER 2024-10-28 12:51 | Oncology outpatient (recurring) (ONCR) | payer MEDICARE, SELFPAY ==
[2024-10-28] MEDS: cyanocobalamin 1,000 mcg/mL SDV 1000 MCG IM (13:16)
== END 2024-11-20 23:59 | disposition home or self-care (01) ==
LOC: ONCMED 12:51
PROVIDERS: PCP Family Medicine; Visit Provider Internal Medicine Medical Oncology
DX: E53.8 Deficiency of other specified B group vitamins (principal); Z79.899 Other long term (current) drug therapy
CPT/HCPCS: 96372; J3420

== ENCOUNTER → 2024-11-08 08:27 | Outpatient (BNVA) | payer MEDICARE, SELFPAY | PROVIDERS: PCP Family Medicine; Referring Provider Psychiatry & Neurology Neurology; Visit Provider Psychiatry & Neurology Neurology | DX: R56.9 Unspecified convulsions (principal) | CPT/HCPCS: 95813; 95816 ==

== ENCOUNTER 2024-11-25 12:27 | Oncology outpatient (recurring) (ONCR) | payer MEDICARE, SELFPAY ==
[2024-11-25 12:36] VITALS: BP 148/74; PULSE 88; RESP 18; TEMP 35.9; O2SAT 94
[2024-11-25] MEDS: cyanocobalamin 1,000 mcg/mL SDV 1000 MCG IM (12:39)
== END 2024-12-21 23:59 | disposition home or self-care (01) ==
PROVIDERS: PCP Family Medicine; Visit Provider Internal Medicine Medical Oncology
DX: E53.8 Deficiency of other specified B group vitamins (principal); Z79.899 Other long term (current) drug therapy
CPT/HCPCS: 96372; J3420

== ENCOUNTER → 2024-11-29 08:22 | Outpatient (BNVA) | payer MEDICARE, SELFPAY | PROVIDERS: PCP Family Medicine; Referring Provider Family Medicine; Visit Provider Internal Medicine | DX: D35.2 Benign neoplasm of pituitary gland (principal); E23.6 Other disorders of pituitary gland; E53.8 Deficiency of other specified B group vitamins | CPT/HCPCS: 99204 ==

== ENCOUNTER 2024-12-02 07:47 | Outpatient (CLI) | payer MEDICARE, SELFPAY ==
[2024-12-02 09:37] LABS: Free T4 Free Thyroxine 0.98 ng/dL (0.82-1.77)
[2024-12-02 09:41] LABS: Cortisol Random 17.35 ug/dL (2.47-19.5)
[2024-12-02 10:04] LABS: Prolactin 12.09 ng/mL (4.8-23.3)
== END 2024-12-02 07:48 | disposition home or self-care (01) ==
PROVIDERS: PCP Family Medicine; Visit Provider Internal Medicine
DX: D35.2 Benign neoplasm of pituitary gland (principal); E23.6 Other disorders of pituitary gland
CPT/HCPCS: 36415; 82024; 82533; 84146; 84305; 84439; 84443

== ENCOUNTER 2024-12-04 08:06 | Outpatient (CLI) | payer MEDICARE, SELFPAY ==
[2024-12-04 08:57] LABS: Total Volume Urine 2300 ml
[2024-12-04 09:11] LABS: Urine Creatinine 72 mg/dL (28-217)
== END 2024-12-04 08:07 | disposition home or self-care (01) ==
LOC: LAB 08:08
PROVIDERS: PCP Family Medicine; Visit Provider Internal Medicine
DX: D35.2 Benign neoplasm of pituitary gland (principal)
CPT/HCPCS: 82530; 82570

== ENCOUNTER 2024-12-06 11:37 | Outpatient (CLI) | payer MEDICARE, SELFPAY ==
--- NOTE | 2024-12-06 11:45 | MRR_ITS ---
PROCEDURE INFORMATION: Exam: MR Head Without and With Contrast Exam date and time: 12/06/2024 11:56 AM Age: 74 years old Clinical indication: Walking, difficulty; Prior surgery; Surgery date: 6+ months; Surgery type: Lt shoulder, , gb, hyster; Mri was done because of falls, balance was off, no headaches. Balance has improved with b 12 shots, and headaches have resolved with it. 08/2024 mri. 2. Enlarged, lobulated, heterogeneous pituitary gland extends above the sella turcica. Recommend follow-up dedicated mri pituitary gland with and without contrast. Microadenoma versus macroadenoma within the differential; Additional info: See below TECHNIQUE: Imaging protocol: Magnetic resonance imaging of the head without and with contrast. Contrast material: MULTIHANCE; Contrast volume: 19 ml; Contrast route: INTRAVENOUS (IV); COMPARISON: MR head wo/w con [id number] 09/03/2024 11:06 AM FINDINGS: Brain: Mildly scattered periventricular white matter hyperintensities are identified. There is no evidence of acute parenchymal hemorrhage, extra-axial collection, or acute infarction. There is no mass effect, midline shift, or downward herniation. There is no pathologic enhancement. Cerebral ventricles: Normal. No ventriculomegaly. Pituitary gland and sella: There is a left sided pituitary adenoma measuring 7 mm AP x 8 mm transverse x 9 mm craniocaudad. The pituitary stalk is midline. The optic chiasm appears normal. The cavernous sinuses appear normal. Bones: Unremarkable. Paranasal sinuses: Normal as visualized. No acute sinusitis. Mastoid air cells: Normal as visualized. No mastoid effusion. Orbital cavities: Unremarkable. Soft tissues: Unremarkable. MR/MR pituitary wo/w con* [id number] IMPRESSION: 1. Pituitary microadenoma. 2. Mildly scattered white matter hyperintensities likely secondary to chronic microvascular ischemic change. No pathologic enhancement.
[2024-12-06] MEDS: gadobenate dimeglumine 20 mL vial 19 ML IV (12:34)
== END 2024-12-06 11:38 | disposition home or self-care (01) ==
LOC: RAD 11:41
PROVIDERS: PCP Family Medicine; Visit Provider Internal Medicine
DX: D35.2 Benign neoplasm of pituitary gland (principal); R93.0 Abnormal findings on diagnostic imaging of skull and head, not elsewhere classified
CPT/HCPCS: 70553

== ENCOUNTER 2024-12-18 12:49 | Outpatient (CLI) | payer MEDICARE, SELFPAY ==
--- NOTE | 2024-12-18 12:57 | XR_ITS ---
WS: [id number] Right wrist, 3 views, 12/18/2024 Clinical Data: UNSPECIFIED FALL, INITIAL ENCOUNTER Comparison: Right hand, 03/02/2023 Findings: No fractures or dislocations are seen. The carpal bones are intact. There is no soft tissue swelling. The distal radius and ulna are not remarkable. There is arthritic change at the right first CMC joint. XR/XR wrist RT min 3V* [id number] Impression: 1. Negative for right wrist fracture. 2. 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
--- NOTE | 2024-12-18 12:57 | XR_ITS ---
WS: [id number] Right elbow, 3 views, 12/18/2024 Clinical Data: UNSPECIFIED FALL, INITIAL ENCOUNTER Comparison: None. Findings: No fractures or dislocations are seen. The radial head is normal. The soft tissues are unremarkable. XR/XR elbow RT min 3V* [id number] Impression: Negative right elbow.
== END 2024-12-18 12:50 | disposition home or self-care (01) ==
PROVIDERS: PCP Family Medicine; Visit Provider Family Medicine
DX: M18.11 Unilateral primary osteoarthritis of first carpometacarpal joint, right hand (principal); W19.XXXA Unspecified fall, initial encounter
CPT/HCPCS: 73080; 73110

== ENCOUNTER 2025-01-20 13:03 | Oncology outpatient (recurring) (ONCR) | payer MEDICARE, SELFPAY ==
[2024-12-23] MEDS: cyanocobalamin 1,000 mcg/mL SDV 1000 MCG IM (14:44)
[2025-01-20] MEDS: cyanocobalamin 1,000 mcg/mL SDV 1000 MCG IM (13:46)
== END 2025-01-20 23:59 | disposition home or self-care (01) ==
PROVIDERS: PCP Family Medicine; Visit Provider Internal Medicine Medical Oncology
DX: E53.8 Deficiency of other specified B group vitamins; Z79.899 Other long term (current) drug therapy; Z53.9 Procedure and treatment not carried out, unspecified reason
CPT/HCPCS: 96372; 96401; J3420

== ENCOUNTER → 2025-01-28 09:00 | Outpatient (BNVA) | payer MEDICARE, SELFPAY | PROVIDERS: PCP Family Medicine; Referring Provider Family Medicine; Visit Provider Psychiatry & Neurology Neurology | DX: R26.89 Other abnormalities of gait and mobility (principal); M79.643 Pain in unspecified hand | CPT/HCPCS: 99212 ==

== ENCOUNTER 2025-02-03 21:40 | Emergency (ER) | payer MEDICARE, SELFPAY ==
--- OUTSIDE RECORDS SUMMARY | 2025-02-03 21:46 | XMS_ITS | Encounter Summary ---
Author Organization [facility] Address [address] [place] [address] Care Team Providers Care Loader Demolder Name Role Phone Miguel Anderson Primary Care Provider [phone] Reason for Referral * Auth/Cert (Routine) Specialty Diagnoses / Procedures Referred By Maki t Referred To Contact Cardiology Diagnoses Near syncope Procedures CL STUDY COMPREHENSIVE EPS [id number], [id number] Nanette Robert MD Phone: tel: fax: [facility] Cardiac Aeroplane Pilot [address] [place] [address] Phone: tel: fax: Referral ID Status Reason Start Date Expiration Date Visits Re quested Visits Authorized [id number] 12/12/2016 01/12/2018 1 1 Encounter Details Date Type Department Care Team (Late st Contact Info) Description 12/12/2016 Ancillary Orders [facility] Cardiology- [place] [address] [place] [address] Nanette Robert MD [address] [place] [address] Near syncope Social History Tobacco Use Types Packs/Day Years Used Date Smoking Tobacco: Never Smokeless Tobacco: Never Alcohol Use Standard Drinks/Week Comments No 0 (1 standard drink = 0.6 oz pur e alcohol) Comments Unknown Sex and Gender Information Value Date Recorded Sex Assigned at Not on file 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 Right Femoral Vein Access x 4 2. Comprehensive Electrophysiology Study with Isuprel Infusion 3. Programmed Pacing and Stimulation from HRA, CS, and RV apex 4. 3D Electroanatomical Mapping (EnSite) 4. Conscious Sedation 5. Fluoroscopy with Interpretation Operators: 1. Nanette Robert MD, [facility], [facility] Indication: 66 y/o WF with h/o Near Syncope s/p ILR found to have SVT and presented for an EP study and possible ablation. Procedure Description: After the patient was informed and consented about the risks, benefits, and alternatives to the procedure, the patient was brought to the EP lab in a non-fed, fasted state. EnSite patches were placed per the usual protocol. The patient was prepped in the usual sterile fashion and conscious sedation was administered. Topical lidocaine was placed in the area of the right groin. Right femoral venous access was obtained x 4 and with fluoroscopic guidance, 4 introducer sheaths were placed via a modified Seldinger technique. Through those sheaths, 3 quadripolar catheters were placed in the area of the HRA, His Bundle, and RV [place]. A [employer] steer D/F curve CS catheter was then placed in the coronary sinus via the remaining introducer sheath. All catheters were used to performed 3D Electroanatomical mapping. Baseline recordings were obtained and standard programmed electrical stimulation was performed with pacing and recording in the atrium and ventricle, including incremental pacing and extrastimulus testing. Isuprel infusion was also performed to assess for inducibility of arrhythmias. After completion of the procedure, the sheaths were removed and hemostasis was achieved. Observations: 1. The baseline rhythm was normal sinus rhythm at 764 ms. RR = 764 ms, TN = 158 ms, AH = 110 ms, HV = 48 ms, QRS = 108 ms, and QT = 374 ms. 2. Anterograde conduction was midline and decremental without evidence of manifest pre-excitation. 3. There was evidence of dual AV node physiology, via sustained slow conduction and AH Jump, when performing A1A2 stimulation. 4. There was no ventricular preexitation when pacing from the HRA or CS. AV BCL = 320 ms, AVN ERP = 600/250 ms. With Isuprel infusion, AV BCL = 240 ms, AVN ERP < 500/200 ms, and A ERP < 500/200 ms. During atrial pacing, there was evidence of a non-sustained atrial tachycardia but also some evidence of pacing-induced atrial fibrillation that would self-terminate. During atrial pacing, she had evidence of bundle morphology change as well. 5. Retrograde conduction was concentric and decremental. VA BCL = 570 ms, VA ERP = 600/400 ms. With Isuprel infusion, VA BCL = 430 ms, VA ERP < 600/220 ms, and V ERP = 600/220 ms. Complications: NONE. EBL = < 30 cc. Conscious sedation time = 0959 and end time = 1051. Summary of Results: 1. Evidence of Non-Sustained Atrial Tachycardia 2. Evidence of Pacing Induced Atrial Fibrillation (no spontaneous AF seen) Nanette Robert MD, RS, [facility] Clinical Cardiac Electrophysiology [facility] Nanette Robert MD FLUOROSCOPY ORDERABLES Final Result [facility] documented in this encounter Visit Diagnoses Diagnosis Near syncope Syncope and collapse Near syncope- Primary Syncope and collapse documented in this encounter Care Teams Loader Demolder Relationship Specialty Start Date End Date Miguel Anderson DO [address] [place] [address] PCP - General Family Practice 04/28/20 documented as of this encounter
--- OUTSIDE RECORDS SUMMARY | 2025-02-03 21:46 | XMS_ITS | Encounter Summary ---
Author Organization [facility] Address [address] [place] [address] Care Team Providers Care Magnetic Prospecting Supervisor Name Role Phone Miguel Anderson DO Primary Care Provider [phone] Reason for Referral * Outpatient Services (Routine) - Closed Specialty Diagnoses / Procedures Referred By Maki watt Referred To Contact Cardiology Diagnoses Near syncope Procedures CL STUDY TILT Nanette Robert MD Phone: tel: fax: [facility] Cardiac Magnetic Prospecting Supervisor [address] [place] [address] Phone: tel: fax: Referral ID Status Reason Start Date Expiration Date Visits Re quested Visits Authorized [id number] Closed 10/21/2016 11/21/2017 1 1 Encounter Details Date Type Department Care Team (Late st Contact Info) Description 10/21/2016 Ancillary Orders [facility] Cardiology- [place] [address] [place] [address] Nanette Robert MD [address] [address] [place] [address] Near syncope Social History Tobacco Use Types Packs/Day Years Used Date Smoking Tobacco: Never Smokeless Tobacco: Never Alcohol Use Standard Drinks/Week Comments No 0 (1 standard drink = 0.6 oz pur e alcohol) Comments Unknown Sex and Gender Information Value Date Recorded Sex Assigned at Not on file 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 Tilt Table Testing 2. Telemetry Operators: 1. Nanette Robert MD, [facility], [facility] - Clinical Cardiac Electrophysiology Indication: 66 y/o WF with h/o Syncope and Near Syncope presents for tilt table testing. Procedure Description: After the patient was informed and consented regarding the risks, benefits, and alternatives to the procedure, the patient was brought to the CLRU and prepped in the usual manner. Telemetry pads were applied in the usual fashion. The patient was placed on the table and the initial HR = 69 and BP = 125/73. The patient remained supine for 25 minutes and then was raised to 80 degrees to a standing position and the HR = 73-85 and the lowest BP = 114/73. The patient was then returned to a supine position and the HR = 84 and BP = 131/71. The patient did not experience syncope throughout the study but did note some nausea. Complications: NONE Summary: 1. Normal physiologic response Recommendations: 1. Implantable loop recorder Nanette Robert MD, [facility], [facility] Clinical Cardiac Electrophysiology [facility] Nanette Robert MD ELECTROPHYSIOLOGY ORDER ELIE Final Result [facility] documented in this encounter Visit Diagnoses Diagnosis Near syncope Syncope and collapse Near syncope- Primary Syncope and collapse documented in this encounter Care Teams Magnetic Prospecting Supervisor Relationship Specialty Start Date End Date Miguel Anderson DO [address] [place] [address] PCP - General Family Practice 04/28/20 documented as of this encounter
--- OUTSIDE RECORDS SUMMARY | 2025-02-03 21:46 | XMS_ITS | Encounter Summary ---
Author Organization [facility] Address [address] [place] [address] Care Team Providers Care Roller Structural Mill Name Role Phone Miguel Anderson DO Primary Care Provider [phone] Encounter Details Date Type Department Care Team (Late st Contact Info) Description 07/22/2002 Outpatient Historical [facility] GracePrimitivo MD [address] [address] SURGERY FOLLOWUP, UNSPEC (Primary Dx) Social History Tobacco Use Types Packs/Day Years Used Date Smoking Tobacco: Never Assessed Comments Unknown Sex and Gender Information Value Date Recorded Sex Assigned at Not on file 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
--- OUTSIDE RECORDS SUMMARY | 2025-02-03 21:46 | XMS_ITS | Encounter Summary ---
Author Organization [facility] Address [address] [place] [address] Care Team Providers Care Resident Care Coordinator Name Role Phone Miguel Anderson DO Primary Care Provider [phone] Encounter Details Date Type Department Care Team (Latest Contact Info) Description 05/07/2001 Outpatient Historical [facility] Rheumatology- [facility] [address] [place] [phone] Darci Robertson MD NO ADDRESS ON FILE Lateral epicondylitis (Primary Dx) Social History Tobacco Use Types Packs/Day Years Used Date Smoking Tobacco: Never Assessed Comments Unknown Sex and Gender Information Value Date Recorded Sex Assigned at Not on file Legal Sex Female 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
--- OUTSIDE RECORDS SUMMARY | 2025-02-03 21:46 | XMS_ITS | Clinical Summary ---
Author Organization [facility] Address [address] [facility] Attn: Epic Prelude ADT NINFA KATHLEEN [address] Care Team Providers Care Chief Human Resources Officer Name Role Phone Miguel Anderson DO Primary Care Provider [phone] Allergies Active Allergy Reactions Criticality Noted Date Comments Ibuprofen Hallucination Low 08/11/2010 Penicillins Anaphylaxis High 08/11/2010 Medications HYDROcodone-maximo taminophen (NORCO) 5-325 mg tabletIndicatio ns:History of loop recorder Take 1 Tablet by mouth every 4 hours as needed for Pain, Moderate. Max Daily Amount: 6 Tablets 12 Tablet 0 05/01/2020 Active lisinopriL (PRINIVIL) 10 mg tabletIndicatio ns:Near syncope TAKE 1/2 TABLET(5 MG) BY MOUTH DAILY 45 Tablet 3 01/20/2021 Active metoprolol tartrate (LOPRESSOR) 25 mg tablet TAKE 1 TABLET(25 MG) BY MOUTH TWICE DAILY 180 Tablet 1 07/02/2021 Active amLODIPine (NORVASC) 5 mg tablet Take 1.5 Tablets (7.5 mg) by mouth daily. 135 Tablet 3 01/18/2017 Active lisinopriL (PRINIVIL) 10 mg tabletIndicatio ns:Near syncope Take 0.5 Tablets (5 mg) by mouth daily. 45 Tablet 01/25/2022 Active Active Problems Problem Noted Date Diagnosed Date Encounter for loop recorder at end of battery li fe 04/16/2020 Overview (11/20/2020): Added automatically from request for surgery [id number] Atrial tachycardia 09/27/2018 Near syncope 09/27/2018 Status post placement of implantable loop record er 11/28/2016 IBS (irritable bowel syndrome) OA (osteoarthritis) HTN (hypertension) GERD (gastroesophageal reflux disease) DM (diabetes mellitus) Family History Medical History Relation Name Comments Colon Cancer Neg Hx Social History Tobacco Use Types Packs/Day Years Used Date Smoking Tobacco: Never Smokeless Tobacco: Never Alcohol Use Standard Drinks/Week Comments No 0 (1 standard drink = 0.6 oz pur e alcohol) Comments Unknown Sex and Gender Information Value Date Recorded Sex Assigned at Not on file Legal Sex Female 4:24 PM SYSTEMS TESTER Gender Identity Not on file Sexual Orientation Not on file Last Filed Vital Signs Vital Sign Reading Time Taken Comments Blood Pressure 138/72 08/23/2023 10:18 AM SYSTEMS TESTER Pulse 86 05/01/2020 2:15 PM CDT Temperature 36.8 C (98.2 F) 05/01/2020 11:10 AM CDT Respiratory Rate 20 05/01/2020 1:15 PM CDT Oxygen Saturation - - Inhaled Oxygen Concentration - - Weight 86.2 kg (190 lb) 08/23/2023 10:18 AM SYSTEMS TESTER Height 165.1 cm (5' 5 ) 08/23/2023 10:18 AM SYSTEMS TESTER Body Mass Index 31.62 08/23/2023 10:18 AM SYSTEMS TESTER Plan of Treatment Health Maintenance Due Date Last Done Comments DIABETES ANNUAL FOOT EXAM 1967 DIABETES ANNUAL RETINAL EXAM 1967 DIABETES HBA1C Q 6 MONTHS 1967 DIABETES MICROALBUMIN ANNUAL SCREEN 1967 LDL CHOLESTEROL ANNUAL 1967 DTAP/TDAP/TD VACCINES (1 - Tdap) 1968 PNEUMOCOCCAL VACCINE 50+ YEARS (1 of 2 - PCV) 07/29/18 69 FIT-DNA Q 3 years 1994 FIT/FOBT Q 1 year 1994 Flex Sig/CT Colonography Q 5 years 1994 ZOSTER VACCINE (1 of 2) 1999 OSTEOPOROSIS SCREENING 2014 COLORECTAL SCREENING 08/17/2020 08/17/2010 Colorectal Cancer Screening 08/17/2020 RSV VACCINE (60+ or ) (1 - 1-dose 75+ series) 2024 INFLUENZA VACCINE (#1) 2025 Medical Devices Implanted Type Area Fur Cleaner Device Identifier Shelf Expiration Date Model / Serial / Lot Loop Recorder Linq-11/07/2016 Implanted:2016 (Quantity not on file) Other LNQ11 / [id number] / Insurance [facility] MEDICARE HMO Care Teams Chief Human Resources Officer Relationship Specialty Start Date End Date Miguel Anderson DO [address] [place] [phone] PCP - General Family Practice 04/28/20
--- OUTSIDE RECORDS SUMMARY | 2025-02-03 21:46 | XMS_ITS | Encounter Summary ---
Author Organization [facility] Address [address] [place] [address] Care Team Providers Care Septic Tank Setter Name Role Phone Miguel Anderson DO Primary Care Provider [phone] Encounter Details Date Type Department Care Team (Latest Contact Info) Description 06/26/2002 Outpatient Historical [facility] Grace, Primitivo Carlson MD [address] [address] CHOLELITHIASIS NOS (Primary Dx) Social History Tobacco Use Types Packs/Day Years Used Date Smoking Tobacco: Never Assessed Comments Unknown Sex and Gender Information Value Date Recorded Sex Assigned at Not on file Legal Sex Female 4:29 AM DIRECTOR SALES SUPPORT Gender Identity Not on file Sexual Orientation Not on file documented as of this encounter Plan of Treatment Not on file documented as of this encounter Visit Diagnoses Diagnosis Calculus of gallbladder without mention of cholecystitis or obstruction- Primary documented in this encounter Care Teams Septic Tank Setter Relationship Specialty Start Date End Date Miguel Anderson DO [address] [place] [phone] PCP - General Family Practice 04/28/20 documented as of this encounter
--- OUTSIDE RECORDS SUMMARY | 2025-02-03 21:46 | XMS_ITS | Clinical Summary ---
Author Organization [facility] Address [address] [place] [address] Care Team Providers Care Claims Administrator Name Role Phone Miguel Anderson DO Primary Care Provider [phone] Allergies Active Allergy Reactions Criticality Noted Date Comments Ibuprofen Hallucination Low 08/11/2010 Penicillins Anaphylaxis High 08/11/2010 Medications metFORMIN (GLUCOPHAGE) 500 mg Oral tablet Take 500 mg by mouth 2 times daily with meals. Active amLODIPine (NORVASC) 5 mg tablet Take 1.5 Tablets (7.5 mg) by mouth daily. 135 Tablet 3 01/18/2017 Active HYDROcodone-maximo taminophen (NORCO) 5-325 mg tabletIndicatio ns:History of loop recorder Take 1 Tablet by mouth every 4 hours as needed for Pain, Moderate. Max Daily Amount: 6 Tablets 12 Tablet 05/01/2020 Active metoprolol tartrate (LOPRESSOR) 25 mg tablet TAKE 1 TABLET(25 MG) BY MOUTH TWICE DAILY 180 Tablet 3 06/29/2020 Active lisinopriL (PRINIVIL) 10 mg tabletIndicatio ns:Near syncope TAKE 1/2 TABLET(5 MG) BY MOUTH DAILY 45 Tablet 3 01/20/2021 Active Active Problems Problem Noted Date Diagnosed Date Encounter for loop recorder at end of battery li fe 04/16/2020 Overview (04/16/2020): Added automatically from request for surgery [id number] Near syncope 09/27/2018 Atrial tachycardia 09/27/2018 Status post placement of implantable loop record er 11/28/2016 GERD (gastroesophageal reflux disease) IBS (irritable bowel syndrome) HTN (hypertension) DM (diabetes mellitus) OA (osteoarthritis) Family History Medical History Relation Name Comments Colon Cancer Neg Hx Social History Tobacco Use Types Packs/Day Years Used Date Smoking Tobacco: Never Smokeless Tobacco: Never Alcohol Use Standard Drinks/Week Comments No 0 (1 standard drink = 0.6 oz pur e alcohol) Comments Unknown Sex and Gender Information Value Date Recorded Sex Assigned at Not on file Legal Sex Female 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 Gender Identity Not on file Sexual Orientation Not on file Last Filed Vital Signs Vital Sign Reading Time Taken Comments Blood Pressure 146/71 05/01/2020 2:15 PM CDT Pulse 86 05/01/2020 2:15 PM CDT Temperature 36.8 C (98.2 F) 05/01/2020 11:10 AM CDT Respiratory Rate 20 05/01/2020 1:15 PM CDT Oxygen Saturation 93% 05/01/2020 2:15 PM CDT Inhaled Oxygen Concentration - - Weight 87 kg (191 lb 12.8 oz) 05/01/2020 11:10 A M CDT Height 165.1 cm (5' 5 ) 05/01/2020 11:10 AM CDT Body Mass Index 31.92 05/01/2020 11:10 AM CDT Plan of Treatment Health Maintenance Due Date Last Done Comments DIABETES ANNUAL FOOT EXAM 1967 DIABETES ANNUAL RETINAL EXAM 1967 DIABETES HBA1C Q 6 MONTHS 1967 DIABETES MICROALBUMIN ANNUAL SCREEN 1967 LDL CHOLESTEROL ANNUAL 1967 DTAP/TDAP/TD VACCINES (1 - Tdap) 1968 PNEUMOCOCCAL VACCINE 50+ YEA RS (1 of 2 - PCV) 1968 FIT-DNA Q 3 years 1994 FIT/FOBT Q 1 year 1994 Flex Sig/CT Colonography Q 5 years 1994 ZOSTER VACCINE (1 of 2) 1999 OSTEOPOROSIS SCREENING 2014 COLORECTAL SCREENING 08/17/2020 08/17/2010, 08/17/19 11 Colorectal Cancer Screening 08/17/2020 RSV VACCINE (60+ or ) (1 - 1-dose 75+ series) 2024 INFLUENZA VACCINE (#1) 2025 Medical Devices Implanted Type Area Meat Cutting Teacher Device Identifier Shelf Expiration Date Model / Serial / Lot Loop Recorder Linq-11/07/2016 Implanted:2016 (Quantity not on file) Other LNQ11 / [id number] / Procedures Procedure Name Priority Date/Time Associated Diagnosis Comments ENDOSCOPY, COLON, DIAGNOSTIC Routine 08/17/2010 8:33 AM PASTING INSPECTOR Diarrhea from Last 3 Months or Most Recently Relevant to Health Maintenance [place] [address] [address] Advance Directives For more information, please contact: [phone] * Full Code (Latest Code Status on File) Date Activated Date Inactivated Comments 01/16/2017 11:10 AM 01/16/2017 4:01 PM * Full Code Date Activated Date Inactivated Comments 11/07/2016 6:09 AM 11/07/2016 1:18 PM * Full Code Date Activated Date Inactivated Comments 08/17/2010 8:31 AM 08/17/2010 12:27 PM Care Teams Claims Administrator Relationship Specialty Start Date End Date Miguel Anderson DO [facility] [place] [phone] PCP - General Family Practice 04/28/20
[2025-02-03 22:07] VITALS: BP 205/105; PULSE 72; RESP 18; TEMP 36.3; O2SAT 98; BMI 30.7
--- NOTE | 2025-02-03 22:11 | ECG_ITS ---
[facility] Test Date: 2025-02-03 Pat Name: Shala Gutiérrez Department: Room: Gender: Female Security Operations Engineer: : 1950 Requested By: Jyoti Tovar Order Number: [id number] Stephanie MD: Jazlyn Maya M.D. Measurements Intervals [place] Rate: 72 P: 46 ND: 172 QRS: -11 QRSD: 84 T: 24 QT: 378 QTc: 414 Interpretive Statements SINUS RHYTHM POSSIBLE RIGHT VENTRICULAR CONDUCTION DELAY [RSR (QR) IN V1/V2] MINIMAL VOLTAGE CRITERIA FOR LVH, CONSIDER NORMAL VARIANT [MEETS CRITERIA IN ONE OF: R(aVL), S(V1), R(V5), R(V5/V6)+S(V1)] Compared to ECG 09/06/2024 20:10:24 No significant changes Electronically Signed On 02-04-2025 09:46:47 CDT by Jazlyn Maya M.D. [id number]
[2025-02-03 23:02] VITALS: BP 208/94
--- NOTE | 2025-02-03 23:02 | XRR_ITS ---
PROCEDURE INFORMATION: Exam: XR Chest Exam date and time: 02/03/2025 11:37 PM Age: 74 years old Clinical indication: Other: Hypertension; Prior surgery; Surgery date: 6+ months; Surgery type: Lumpectomy, HX of loop recorder TECHNIQUE: Imaging protocol: Radiologic exam of the chest. Views: 1 view. COMPARISON: CR XR chest 1V portable [id number] 09/06/2024 8:53 PM FINDINGS: Lungs: No CHF/pulmonary edema. Visible lungs appear essentially clear. Pleural spaces: No visible pneumothorax. No definite pleural fluid. Heart/Mediastinum: Heart size appears upper range of normal. Bones/joints: Moderate thoracic spine scoliosis, convex to the right, similar to the prior exam. XR/XR chest 1V portable [id number] IMPRESSION: 1. No definite CHF or pneumonia. 2. Other findings discussed above.
[2025-02-03 23:45] LABS: Hematocrit 39.4 % (36-47); Hemoglobin 13.10 g/dL (11.27-16.99); Mean Corpuscular HGB Conc 33.2 g/dL (30-55); Mean Corpuscular Hemoglobin 28.4 pg (27-33); Mean Corpuscular Volume 85.3 fl (85-98); Nucleated Red Blood Cells % 0 %; Platelet Count 186 10^3/cmm (157-399); Red Blood Count 4.62 10^6/uL (3.85-5.65); White Blood Count 6.65 10^3/uL (3.29-11.43)
[2025-02-04 00:03] LABS: Troponin(5th) Baseline < 6 ng/L (0-10)
[2025-02-04 00:18] LABS: Alanine Aminotransferase 8 U/L (0-33); Albumin Level 4.4 g/dL (3.5-5.2); Alkaline Phosphatase 126 U/L (35-105); Anion Gap 17.0 (5-19); Aspartate Amino Transferase 11 U/L (0-32); Blood Urea Nitrogen 15 mg/dL (8-23); Calcium 9.8 mg/dL (8.5-10.5); Carbon Dioxide 24 mmol/L (22-29); Chloride 100 mmol/L (98-107); Creatinine Clr Calc Pharmacy 52.0010; Globulin 2.5 g/dL (1.3-4.6); Glucose 109 mg/dL (65-115); NT Pro B Type Natriuretic Pept 51 pg/mL (0-450); Osmolality Calculated 285 mOsm/kg (285-295); Potassium 4.0 mmol/L (3.5-5.1); Sodium 137 mmol/L (136-145); Total Protein 6.9 g/dL (6.6-8.7)
[2025-02-04 00:37] VITALS: BP 157/88
== END 2025-02-04 01:24 | disposition left against medical advice (07) ==
LOC: ER 21:44
PROVIDERS: Emergency Medicine; Emergency Provider Family Medicine; PCP Family Medicine
DX: I10 Essential (primary) hypertension (principal); Z53.21 Procedure and treatment not carried out due to patient leaving prior to being seen by health care provider
CPT/HCPCS: 36415; 71045; 80053; 83880; 84484; 85025; 93005; 99285

== ENCOUNTER 2025-02-17 13:04 | Oncology outpatient (recurring) (ONCR) | payer MEDICARE, SELFPAY ==
[2025-02-17] MEDS: cyanocobalamin 1,000 mcg/mL SDV 1000 MCG IM (13:28)
== END 2025-02-20 23:59 | disposition home or self-care (01) ==
LOC: ONCMED 13:05
PROVIDERS: PCP Family Medicine; Visit Provider Internal Medicine Medical Oncology
DX: E53.8 Deficiency of other specified B group vitamins (principal); Z79.899 Other long term (current) drug therapy
CPT/HCPCS: 96372; J3420

== ENCOUNTER 2025-03-03 17:21 | Emergency (ER) | payer MEDICARE, SELFPAY ==
[2025-03-03] VITALS (18 sets, daily range): BP systolic 143–193; BP diastolic 84–109; PULSE 70–82; RESP 14–27; TEMP 36.4; O2SAT 94–98; BMI 30.7
--- NOTE | 2025-03-03 17:37 | W.ED.RECABL ---
HPI - Recheck/Abnormal Lab/Rx General: Chief Complaint: Recheck/Abnormal Lab/Rx Stated Complaint: high bp Time Seen by Provider: 03/03/25 17:33 History of Present Illness: Chief plaint is elevated blood pressure. Patient states that she has been taking her blood pressure and it has been fluctuating a lot. She used to be on amlodipine and she cannot remember why they took her off it but it was several months ago. Over the last month her blood pressure has been gradually increasing. She states she will get some dull pressure but no significant headache. No chest pain or shortness of breath. No abdominal pain. No fever. She has some fatigue but no other significant symptoms. No numbness weakness or tingling her arms or legs. She did fall a few days ago and hit the side of her ribs on the back but denies any concern for significant injury or rib fracture. She states she has no abdominal pain or abdominal injury or low back injury. She states she is certain she did not hit her head. She has chronic problems with balance this been going on for at least 8 or 9 months if not longer. She has been following with her doctor. No acute change in vision or balance. No fever or recent illness. Related Data Previous Rx's ?Medication ?Instructions ?Recorded diclofenac sodium 1 % topical gel 4 g topical QID #100 grams 06/26/23 (Voltaren Arthritis Pain) lisinopril 10 mg tablet 10 mg PO BID #180 tabs 05/02/24 metoprolol tartrate 25 mg tablet 25 mg PO BID #180 tabs 05/02/24 fluticasone propionate 50 1 spray intranasal BID 14 days #16 05/15/24 mcg/actuation nasal grams spray,suspension (Flonase Allergy Relief) cholecalciferol (vitamin D3) 1,250 50,000 unit PO .weekly #14 caps 08/20/24 mcg (50,000 unit) capsule pantoprazole 40 mg tablet,delayed 40 mg PO DAILY #60 tabs 09/06/24 release (Protonix) mecobalamin (vitamin B12) 1,000 1,000 mcg PO DAILY vit 12 def #90 09/19/24 mcg chewable tablet tabs metformin 500 mg tablet 500 mg PO BID #180 tabs 09/23/24 Allergies Allergy/AdvReac Type Severity Reaction Status Date / Time doxycycline Allergy Severe vomiting Verified 03/03/25 17:26 ibuprofen Allergy nausea Verified 03/03/25 17:26 Penicillins Allergy nausea Verified 03/03/25 17:26 [facility] ED PFSH: Medical History (Updated 03/03/25 @ 20:18 by Doc Alba MD) Eruptive skin inflammation Hx of concussion Hx of breast lump benign Essential hypertension Surgical History Hx of dilation and curettage History of loop recorder Yesica Louis Hx of cataract removal with insertion of prosthetic lens Hx of cholecystectomy Hx of hysterectomy Family History Father Cancer prostate cancer Other CAD (coronary artery disease) Social History Smoking and tobacco/nicotine status: never used tobacco/nicotine Alcohol intake: never Physical Exam Narrative: EXAM NARRATIVE: Alert oriented talkative no acute distress. She moves freely in bed. Pupils equal reactive light. Full range ocular motion. Neck supple. Heart regular rate and rhythm no rubs no murmurs. Lung sounds are clear. Abdomen soft nontender. Extremities warm well-perfused. No drift in her arms or legs. She gets up and ambulates around the room. No truncal ataxia. Grossly intact cerebellar function. She moves her neck freely. She does have a bruise over the left posterior lower rib area. No tenderness below that. No chest wall tenderness. No abdominal tenderness or bruising to the abdomen. Extremities warm well-perfused. No calf tenderness or pitting edema. Mildly anxious. Course Vital Signs: Vital signs: Vital Signs Temperature 97.6 F 03/03/25 17:24 Pulse Rate 77 03/03/25 19:45 Respiratory Rate 16 03/03/25 19:45 Blood Pressure 148/94 03/03/25 19:45 Pulse Oximetry 96 03/03/25 19:45 Oxygen Delivery Me thod Room Air 03/03/25 17:24 MDM - Recheck/Abnormal Lab/Rx Medical Decision Making Patient presents with some vague symptoms of fatigue and she states she will get a slight pressure on her head when her blood pressure goes up but no concerning headache. No chest pain or shortness of breath. She states that her blood pressure increase has gradually been going up. She states that will fluctuate between 140s and up to about 200. Here her blood pressure fluctuates significantly. She tells me she is on 10 mg of lisinopril in the morning and 10 at night. CBC CMP EKG ordered. Labs did not show significant abnormality. Patient EKG to my interpretation shows sinus rhythm with a rate of [address] segment changes. She denies any chest pain chest discomfort or shortness of breath to suggest acute [place]. Patient's blood pressure trended down without treatment. I gave her 20 mg of lisinopril. I advised her the dangers of hypertension and the importance of close follow-up, low-sodium diet and treatment options. Will increase her lisinopril to 20 mg in the morning and 10 at night and then if she does not respond to that increase to 30 mg in the morning and 10 at night. She states her doctors been out of town which is why she came here instead of primary care. I advised her prompt follow-up with her doctor and signs symptoms of concern to suggest hypertensive crisis or other emergent process to watch and return for. Patient laughing talkative no acute distress and agrees with plan. I did order chest x-ray as well with her fall and this was negative for acute process per radiology. Lab Data 03/03/25 17:49 03/03/25 17:49 Radiology Impressions Chest X-Ray 03/03/25 17:41 IMPRESSION: No definite acute infiltrate or effusion. Laboratory Results WBC 6.41 10^3/uL (3.29-11.43) 03/03/25 17:49 RBC 4.55 10^6/uL (3.85-5.65) 03/03/25 17:49 Hgb 12.70 g/dL (11.27-16.99) 03/03/25 17:49 Hct 38.1 % (36-47) 03/03/25 17:49 MCV 83.7 fl (85-98) L 03/03/25 17:49 MCH 27.9 pg (27-33) 03/03/25 17:49 MCHC 33.3 g/dL (30-55) 03/03/25 17:49 RDW 14.0 % (12.1-15.1) 03/03/25 17:49 Plt Count 197 10^3/cmm (157-399) 03/03/25 17:49 MPV 10.4 fL (7.4-10.4) 03/03/25 17:49 Neut % (Auto) 61.5 % 03/03/25 17:49 Lymph % (Auto) 25.7 % 03/03/25 17:49 [place] % (Auto) 8.3 % 03/03/25 17:49 Eos % (Auto) 3.9 % 03/03/25 17:49 Baso % (Auto) 0.3 % 03/03/25 17:49 Neut # (Auto) 3.94 10^3/uL (1.8-7.7) 03/03/25 17:49 Lymph # (Auto) 1.7 10^3/uL (0.8-4.8) 03/03/25 17:49 [place] # (Auto) 0.5 10^3/uL (0.2-0.9) 03/03/25 17:49 Eos # (Auto) 0.3 10^3/uL (0.0-0.8) 03/03/25 17:49 Baso # (Auto) 0.0 10^3/uL (0.0-0.1) 03/03/25 17:49 Nucleated RBC % (auto) 0 % 03/03/25 17:49 Nucleated RBCs # 0.0 /100WBC 03/03/25 17:49 Sodium 140 mmol/L (136-145) 03/03/25 17:49 Potassium 4.0 mmol/L (3.5-5.1) 03/03/25 17:49 Chloride 101 mmol/L (98-107) 03/03/25 17:49 Carbon Dioxide 25 mmol/L (22-29) 03/03/25 17:49 Anion Gap 18.0 (5-19) 03/03/25 17:49 BUN 15 mg/dL (8-23) 03/03/25 17:49 Creatinine 0.9 mg/dL (0.5-0.9) 03/03/25 17:49 GFR Calculation Not Reportable 03/03/25 17:49 Glucose 107 mg/dL (65-115) 03/03/25 17:49 Calculated Osmolality 291 mOsm/kg (285-295) 03/03/25 17:49 Calcium 10.0 mg/dL (8.5-10.5) 03/03/25 17:49 All radiology interpretation(s) finalized by discharge Discharge Plan Discharge Patient Disposition: Home Clinical Impression: Hypertensive urgency Condition: Stable Prescriptions: No Action diclofenac sodium [Voltaren Arthritis Pain] 1 % gel 4 g topical QID Qty: 100 0RF Rx Instructions: apply to right wrist and hand. fluticasone propionate [Flonase Allergy Relief] 50 mcg/actuation spray,suspension 1 spray intranasal BID 14 Days Qty: 16 0RF Rx Instructions: administer into each nostril mecobalamin (vitamin B12) 1,000 mcg tablet,chewable 1,000 mcg PO DAILY Qty: 90 0RF lisinopril 10 mg tablet 10 mg PO BID Qty: 180 3RF metoprolol tartrate 25 mg tablet 25 mg PO BID Qty: 180 3RF cholecalciferol (vitamin D3) 1,250 mcg (50,000 unit) capsule 50,000 unit PO .weekly Qty: 14 4RF metformin 500 mg tablet 500 mg PO BID Qty: 180 3RF pantoprazole [Protonix] 40 mg tablet,delayed release (DR/EC) 40 mg PO DAILY Qty: 60 0RF Discharge Orders: Discharge ED (Routine); Ordered 03/03/25 Ordered By: Doc Alba Referrals: Miguel Anderson DO [Primary Care Provider, Family Practice] Patient Instructions: Opioid Safety, Pain Management, Patient Portal & Shavon Instructions Activity Restrictions/Additional Instructions: Come back if fever, concerning headache or chest pain or shortness of breath, blood pressure [id number], new or worsening symptoms or concerns. As discussed increase your lisinopril to take 20 mg in the morning and 10 mg at night. You can increase further up to a maximum of 40 mg daily. Follow-up on your test results with your doctor. Recheck with your doctor in the next week Print Language: Zambian Coding Level of Care Code ED Accountant Budget for Trino Nathan
--- NOTE | 2025-03-03 17:41 | XRR_ITS ---
PROCEDURE INFORMATION: Exam: XR Chest Exam date and time: 03/03/2025 5:49 PM Age: 74 years old Clinical indication: Other: HTN; Additional info: Trauma TECHNIQUE: Imaging protocol: Radiologic exam of the chest. Views: 1 view. COMPARISON: CR (CHEST, ) 02/03/2025 11:37 PM FINDINGS: Single view. Lungs: Unremarkable. No consolidation. Pleural spaces: Unremarkable. No pleural effusion. No pneumothorax. Heart/Mediastinum: Unremarkable. No cardiomegaly. Vasculature: Tortuosity of the aorta. Aortic atherosclerosis. Bones/joints: Mild degenerative change of the AC joint. Postsurgical changes of the left glenohumeral joint. XR/XR chest 1V portable [id number] IMPRESSION: No definite acute infiltrate or effusion.
--- NOTE | 2025-03-03 17:50 | ECG_ITS ---
[email or web address] Date: 2025-03-03 Pat Name: Shala Gutiérrez Department: Room: Gender: Female Sports Management Professor: : 1950 Requested By: Doc Alba Order Number: [id number] Stephanie MD: Jazlyn Maya M.D. Measurements Intervals [place] Rate: 78 P: 38 AK: 179 QRS: -14 QRSD: 80 T: 17 QT: 355 QTc: 406 Interpretive Statements SINUS RHYTHM MODERATE VOLTAGE CRITERIA FOR LVH, CONSIDER NORMAL VARIANT [MEETS CRITERIA IN ONE OF: R(aVL), S(V1), R(V5), R(V5/V6)+S(V1)] Compared to ECG 02/03/2025 22:11:19 No significant changes Electronically Signed On 03-03-2025 22:44:34 CDT by Jazlyn Maya M.D. [email or web address]
[2025-03-03 18:09] LABS: Hematocrit 38.1 % (36-47); Hemoglobin 12.70 g/dL (11.27-16.99); Mean Corpuscular HGB Conc 33.3 g/dL (30-55); Mean Corpuscular Hemoglobin 27.9 pg (27-33); Mean Corpuscular Volume 83.7 fl (85-98); Nucleated Red Blood Cells % 0 %; Platelet Count 197 10^3/cmm (157-399); Red Blood Count 4.55 10^6/uL (3.85-5.65); White Blood Count 6.41 10^3/uL (3.29-11.43)
[2025-03-03 18:27] LABS: Anion Gap 18.0 (5-19); Blood Urea Nitrogen 15 mg/dL (8-23); Calcium 10.0 mg/dL (8.5-10.5); Carbon Dioxide 25 mmol/L (22-29); Chloride 101 mmol/L (98-107); Creatinine Clr Calc Pharmacy 57.7789; Glucose 107 mg/dL (65-115); Osmolality Calculated 291 mOsm/kg (285-295); Potassium 4.0 mmol/L (3.5-5.1); Sodium 140 mmol/L (136-145)
--- OUTSIDE RECORDS SUMMARY | 2025-03-05 12:17 | XMS_ITS | Encounter Summary ---
Author Organization [facility] Address [address] [place] [address] Care Team Providers Care Behavioral Health Counselor Name Role Phone Miguel Anderson DO Primary Care Provider [phone] Encounter Details Date Type Department Care Team (Latest Contact Info) Description 05/07/2001 Outpatient Historical [facility] Rheumatology- [facility] [address] [place] [phone] Darci Robertson MD NO ADDRESS ON FILE Lateral epicondylitis (Primary Dx) Social History Tobacco Use Types Packs/Day Years Used Date Smoking Tobacco: Never Assessed Comments Unknown Sex and Gender Information Value Date Recorded Sex Assigned at Not on file Legal Sex Female 4:29 AM COMPENSATION ANALYST Gender Identity Not on file Sexual Orientation Not on file documented as of this encounter Plan of Treatment Not on file documented as of this encounter Visit Diagnoses Diagnosis Lateral epicondylitis- Primary Lateral epicondylitis of elbow documented in this encounter Care Teams Behavioral Health Counselor Relationship Specialty Start Date End Date Miguel Anderson DO [address] [place] [address] PCP - General Family Practice 04/28/20 documented as of this encounter
--- OUTSIDE RECORDS SUMMARY | 2025-03-05 12:17 | XMS_ITS | Clinical Summary ---
Author Organization [employer] [facility] Address [address] [facility] Attn: Epic Prelude ADT NINFA KATHLEEN [address] Care Team Providers Care Layer Out Plate Glass Name Role Phone Miguel Anderson DO Primary Care Provider [phone] Allergies Active Allergy Reactions Criticality Noted Date [...] (11/20/2020): Added automatically from request for surgery [id number] Atrial tachycardia 09/27/2018 Near syncope 09/27/2018 Status [...] on file Legal Sex Female 4:24 PM SMALL ANIMAL VETERINARIAN Gender Identity Not on file Sexual Orientation Not on file Last Filed Vital Signs Vital Sign Reading Time Taken Comments Blood Pressure 138/72 08/23/2023 10:18 AM SMALL ANIMAL VETERINARIAN Pulse 86 05/01/2020 2:15 PM CDT Temperature 36.8 C (98.2 F) 05/01/2020 11:10 AM CDT Respiratory Rate 20 05/01/2020 1:15 PM CDT Oxygen Saturation - - Inhaled Oxygen Concentration - - Weight 86.2 kg (190 lb) 08/23/2023 10:18 AM SMALL ANIMAL VETERINARIAN Height 165.1 cm (5' 5 ) 08/23/2023 10:18 AM SMALL ANIMAL VETERINARIAN Body Mass Index 31.62 08/23/2023 10:18 AM SMALL ANIMAL VETERINARIAN Plan of Treatment Health Maintenance Due Date [...] (#1) 2025 Medical Devices Implanted Type Area Contracting Specialist Device Identifier Shelf Expiration Date Model / Serial / Lot Loop Recorder Linq-11/07/2016 Implanted:2016 (Quantity not on file) Other LNQ11 / [id number] / Insurance [facility] MEDICARE HMO Care Teams Layer Out Plate Glass Relationship Specialty Start Date End Date Miguel Anderson DO [address] [place] [id number] PCP - General Family Practice 04/28/20
--- OUTSIDE RECORDS SUMMARY | 2025-03-05 12:17 | XMS_ITS | Encounter Summary ---
Author Organization [facility] Address [address] [place] [address] Care Team Providers Care Cabin Cleaning Supervisor Name Role Phone Miguel Anderson DO Primary Care Provider [phone] Reason for Referral * Outpatient Services (Routine) - Closed Specialty Diagnoses / Procedures Referred By Maki watt Referred To Contact Cardiology Diagnoses Near syncope Procedures CL STUDY TILT Nanette Robert MD Phone: tel: fax: [facility] Cardiac Medical Technologist Chemistry [address] [place] [address] Phone: tel: fax: Referral ID Status Reason Start Date Expiration Date Visits Re quested Visits Authorized [id number] Closed 10/21/2016 11/21/2017 1 1 Encounter Details Date Type Department Care Team (Late st Contact Info) Description 10/21/2016 Ancillary Orders [facility] Cardiology- [place] [address] [place] [address] Nanette Robert MD [address] [facility] [address] [place] [address] Near syncope Social History Tobacco Use Types Packs/Day Years Used Date Smoking Tobacco: Never Smokeless Tobacco: Never Alcohol Use Standard Drinks/Week Comments No 0 (1 standard drink = 0.6 oz pur e alcohol) Comments Unknown Sex and Gender Information Value Date Recorded Sex Assigned at Not on file 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 Tilt Table Testing 2. Telemetry Operators: 1. Nanette Robert MD, [facility] - Clinical Cardiac Electrophysiology Indication: 66 y/o [...] 1. Implantable loop recorder Nanette Robert MD, [facility] Clinical Cardiac Electrophysiology [facility] Nanette Robert MD ELECTROPHYSIOLOGY ORDER ELIE Final Result [facility] documented in this encounter Visit Diagnoses Diagnosis Near syncope Syncope and collapse Near syncope- Primary Syncope and collapse documented in this encounter Care Teams Cabin Cleaning Supervisor Relationship Specialty Start Date End Date Miguel Anderson DO [address] [place] [address] PCP - General Family Practice 04/28/20 documented as of this encounter
--- OUTSIDE RECORDS SUMMARY | 2025-03-05 12:17 | XMS_ITS | Encounter Summary ---
Author Organization [facility] Address [address] [place] [address] Care Team Providers Care Regional Economic Liaison Name Role Phone Miguel Anderson Primary Care Provider [phone] Reason for Referral * Auth/Cert (Routine) Specialty Diagnoses / Procedures Referred By Maki t Referred To Contact Cardiology Diagnoses Near syncope Procedures CL STUDY COMPREHENSIVE [place] [id number], [id number], [id number] Nanette Robert MD Phone: tel: fax: [facility] Cardiac Bar Gauger And Lubricator Tender [address] [place] [address] Phone: tel: fax: Referral ID Status Reason Start Date Expiration Date Visits Re quested Visits Authorized [id number] 12/12/2016 01/12/2018 1 1 Encounter Details Date Type Department Care Team (Late st Contact Info) Description 12/12/2016 Ancillary Orders [facility] Cardiology- [place] [address] [place] [address] Nanette Robert MD [address] [facility] [address] [place] [address] Near syncope Social History Tobacco Use Types Packs/Day Years Used Date Smoking Tobacco: Never Smokeless Tobacco: Never Alcohol Use Standard Drinks/Week Comments No 0 (1 standard drink = 0.6 oz pur e alcohol) Comments Unknown Sex and Gender Information Value Date Recorded Sex Assigned at Not on file 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 Right Femoral Vein Access x 4 2. Comprehensive Electrophysiology Study with Isuprel Infusion 3. Programmed Pacing and Stimulation from HRA, CS, and RV apex 4. 3D Electroanatomical Mapping (EnSite) 4. Conscious Sedation 5. Fluoroscopy with Interpretation Operators: 1. Nanette Robert MD, [facility], [facility] Indication: 66 y/o WF with h/o Near [...] of the HRA, His Bundle, and RV Tracy. A [employer] steer D/F curve CS catheter was then [...] at 764 ms. RR = 764 ms, RI = 158 ms, AH = 110 ms, [...] spontaneous AF seen) Nanette Robert MD, RS, [facility] Clinical Cardiac Electrophysiology [facility] Nanette Robert MD FLUOROSCOPY ORDERABLES Final Result [facility] documented in this encounter Visit Diagnoses Diagnosis Near syncope Syncope and collapse Near syncope- Primary Syncope and collapse documented in this encounter Care Teams Regional Economic Liaison Relationship Specialty Start Date End Date Miguel Anderson DO [address] [place] [address] PCP - General Family Practice 04/28/20 documented as of this encounter
--- OUTSIDE RECORDS SUMMARY | 2025-03-05 12:17 | XMS_ITS | Encounter Summary ---
Author Organization [facility] Address [address] [place] [address] Care Team Providers Care Permit Review Assistant Name Role Phone Miguel Anderson DO Primary Care Provider [phone] Encounter Details Date Type Department Care Team (Latest Contact Info) Description 06/26/2002 Outpatient Historical [facility] GracePrimitivo MD [address] [facility] [address] [place] [address] CHOLELITHIASIS NOS (Primary Dx) Social History Tobacco Use Types Packs/Day Years Used Date Smoking Tobacco: Never Assessed Comments Unknown Sex and Gender Information Value Date Recorded Sex Assigned at Not on file 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
--- OUTSIDE RECORDS SUMMARY | 2025-03-05 12:17 | XMS_ITS | Clinical Summary ---
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 Gender Identity Not on file Sexual [...] (#1) 2025 Medical Devices Implanted Type Area Direct Sales Professional Device Identifier Shelf Expiration Date Model / Serial / Lot Loop Recorder Linq-11/07/2016 Implanted:2016 (Quantity not on file) Other LNQ11 / [id number] / Procedures Procedure Name Priority Date/Time Associated Diagnosis Comments ENDOSCOPY, COLON, DIAGNOSTIC Routine 08/17/2010 8:33 AM TELEVISION REPAIR TEACHER Diarrhea from Last 3 Months or Most Recently Relevant to Health Maintenance [place] [address] [address] Advance Directives For more information, please contact: [phone] * Full Code (Latest Code Status on File) Date Activated Date Inactivated Comments 01/16/2017 11:10 AM 01/16/2017 4:01 PM * Full Code Date Activated Date Inactivated Comments 11/07/2016 6:09 AM 11/07/2016 1:18 PM * Full Code Date Activated Date Inactivated Comments 08/17/2010 8:31 AM 08/17/2010 12:27 PM Care Teams Life Care Planner Relationship Specialty Start Date End Date Miguel Anderson DO [facility] [place] [phone] PCP - General Family Practice 04/28/20
--- OUTSIDE RECORDS SUMMARY | 2025-03-05 12:17 | XMS_ITS | Encounter Summary ---
Author Organization [facility] Address [address] [place] [address] Care Team Providers Care System Configuration Specialist Name Role Phone Miguel Anderson DO Primary Care Provider Encounter Details Date Type Department Care Team (Latest Contact Info) Description 07/22/2002 Outpatient Historical [facility] GracePrimitivo MD [address] [address] SURGERY FOLLOWUP, UNSPEC (Primary Dx) Social History Tobacco Use Types Packs/Day Years Used Date Smoking Tobacco: Never Assessed Comments Unknown Sex and Gender Information Value Date Recorded Sex Assigned at Not on file Legal Sex Female 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
== END 2025-03-03 22:35 | disposition home or self-care (01) ==
PROVIDERS: Emergency Provider Emergency Medicine; PCP Family Medicine
DX: I16.0 Hypertensive urgency (principal); Z79.84 Long term (current) use of oral hypoglycemic drugs; I10 Essential (primary) hypertension
CPT/HCPCS: 36415; 71045; 80048; 85025; 93005; 99285; J9999

== ENCOUNTER 2025-03-17 12:58 | Oncology outpatient (recurring) (ONCR) | payer MEDICARE, SELFPAY ==
[2025-03-17 13:38] LABS: Hematocrit 40.3 % (36-47); Hemoglobin 13.20 g/dL (11.27-16.99); Mean Corpuscular HGB Conc 32.8 g/dL (30-55); Mean Corpuscular Hemoglobin 28.3 pg (27-33); Mean Corpuscular Volume 86.5 fl (85-98); Nucleated Red Blood Cells % 0 %; Platelet Count 211 10^3/cmm (157-399); Red Blood Count 4.66 10^6/uL (3.85-5.65); White Blood Count 6.49 10^3/uL (3.29-11.43)
[2025-03-17 14:02] LABS: Alanine Aminotransferase 11 U/L (0-33); Albumin Level 4.6 g/dL (3.5-5.2); Alkaline Phosphatase 94 U/L (35-105); Anion Gap 15.0 (5-19); Aspartate Amino Transferase 16 U/L (0-32); Blood Urea Nitrogen 8 mg/dL (8-23); Calcium 9.9 mg/dL (8.5-10.5); Carbon Dioxide 26 mmol/L (22-29); Chloride 102 mmol/L (98-107); Creatinine Clr Calc Pharmacy 57.9334; Globulin 2.9 g/dL (1.3-4.6); Glucose 98 mg/dL (65-115); Osmolality Calculated 286 mOsm/kg (285-295); Potassium 4.0 mmol/L (3.5-5.1); Sodium 139 mmol/L (136-145); Total Protein 7.5 g/dL (6.6-8.7)
[2025-03-17] MEDS: cyanocobalamin 1,000 mcg/mL SDV 1000 MCG IM (14:11)
[2025-03-17 14:18] LABS: Vitamin B12 429 pg/mL (232-1245)
== END 2025-03-23 23:59 | disposition home or self-care (01) ==
PROVIDERS: PCP Family Medicine; Visit Provider Internal Medicine Medical Oncology
DX: E53.8 Deficiency of other specified B group vitamins (principal); Z79.899 Other long term (current) drug therapy; E55.9 Vitamin D deficiency, unspecified; W19.XXXA Unspecified fall, initial encounter
CPT/HCPCS: 36415; 80053; 82306; 82607; 85025; 96372; 99214; J3420

== ENCOUNTER 2025-04-03 09:30 | Outpatient (RCR) | payer MEDICARE, SELFPAY | END 2025-04-22 23:59 | disposition home or self-care (01) | LOC: SPT 09:30 | PROVIDERS: PCP Family Medicine; Visit Provider Family Medicine | DX: R42 Dizziness and giddiness (principal) | CPT/HCPCS: 95992; 97161 ==

== ENCOUNTER 2025-04-14 10:43 | Oncology outpatient (recurring) (ONCR) | payer MEDICARE, SELFPAY ==
[2025-04-14] MEDS: cyanocobalamin 1,000 mcg/mL SDV 1000 MCG IM (11:05)
== END 2025-04-22 23:59 | disposition home or self-care (01) ==
LOC: ONCMED 10:44
PROVIDERS: PCP Family Medicine; Visit Provider Internal Medicine Medical Oncology
DX: E53.8 Deficiency of other specified B group vitamins (principal); Z79.899 Other long term (current) drug therapy
CPT/HCPCS: 96372; J3420

== ENCOUNTER 2025-04-23 06:30 | Outpatient (RCR) | payer MEDICARE, SELFPAY | END 2025-04-24 11:59 | disposition home or self-care (01) | LOC: SPT 06:30 | PROVIDERS: PCP Family Medicine; Visit Provider Family Medicine | DX: R42 Dizziness and giddiness (principal) | CPT/HCPCS: 95992 ==

== ENCOUNTER 2025-05-12 10:52 | Oncology outpatient (recurring) (ONCR) | payer MEDICARE, SELFPAY ==
[2025-05-12] MEDS: cyanocobalamin 1,000 mcg/mL SDV 1000 MCG IM (11:18)
== END 2025-05-23 23:59 | disposition home or self-care (01) ==
LOC: ONCMED 10:54
PROVIDERS: PCP Family Medicine; Visit Provider Internal Medicine Medical Oncology
DX: E53.8 Deficiency of other specified B group vitamins (principal); Z79.899 Other long term (current) drug therapy
CPT/HCPCS: 96372; J3420

== ENCOUNTER 2025-06-09 10:56 | Oncology outpatient (recurring) (ONCR) | payer MEDICARE, SELFPAY ==
[2025-06-09] MEDS: cyanocobalamin 1,000 mcg/mL SDV 1000 MCG IM (11:09)
[2025-06-09 12:05] VITALS: BP 163/84; PULSE 76; RESP 16; TEMP 36.7; O2SAT 96
== END 2025-06-22 23:59 | disposition home or self-care (01) ==
LOC: ONCMED 10:56
PROVIDERS: PCP Family Medicine; Visit Provider Internal Medicine Medical Oncology
DX: E53.8 Deficiency of other specified B group vitamins (principal); Z79.899 Other long term (current) drug therapy
CPT/HCPCS: 96372; J3420

== ENCOUNTER 2025-07-07 10:45 | Oncology outpatient (recurring) (ONCR) | payer MEDICARE, SELFPAY ==
[2025-07-07] MEDS: cyanocobalamin 1,000 mcg/mL SDV 1000 MCG IM (11:07)
== END 2025-07-23 23:59 | disposition home or self-care (01) ==
PROVIDERS: PCP Family Medicine; Visit Provider Internal Medicine Medical Oncology
DX: E53.8 Deficiency of other specified B group vitamins (principal); Z79.899 Other long term (current) drug therapy
CPT/HCPCS: 96401; J3420